=== PATIENT | female | born 1945 | race Caucasian/White ===

== ENCOUNTER → 2019-04-15 | Outpatient (CLI) | payer MEDICARE ==
--- NOTE | 2019-04-15 12:26 | Diagnostic Imaging Report ---
PROCEDURE: US abdomen complete. TECHNIQUE: Multiple real-time grayscale images were obtained over the abdomen in various projections. INDICATION: Abdominal bruit. COMPARISON: There are no prior studies available for comparison. FINDINGS: Spectral and color flow imaging of the aorta shows that there is extensive atherosclerotic plaque throughout the aorta. There is no evidence for aneurysm formation and there is no periaortic fluid collection that would suggest an acute abnormality. The inferior vena cava was generally unremarkable. The liver does not appear to be enlarged. There are areas of increased density paralleling the biliary tree. This may be secondary to periportal fibrosis. Spectral and color flow imaging of the hepatic veins and the portal veins shows that the veins are patent and that there is normal directional flow within the veins. There is no evidence for cholelithiasis or acute cholecystitis and the common bile duct is not dilated. There are two small nonmotile non shadowing echogenic densities within the gallbladder. These may represent polyps. The spleen is unremarkable. The pancreatic tail was obscured. The pancreatic head shows no sign of a mass. The kidneys were also partially obscured. There is a 2.9 x 4.6 cm hyperechoic area along the superior pole of the right kidney. I suspect that this is an angiomyolipoma, a benign neoplasm of the kidney. However unless previous studies are available for comparison, I would recommend that CT be performed to better evaluate this finding. The right renal pelvis also seems prominent, although there is no evidence for hydronephrosis. The left kidney where visualized is unremarkable. There is no abdominal mass or free fluid collection evident. IMPRESSION: 1. There is no acute abnormality of the abdomen. 2. There is atherosclerotic plaque throughout the aorta but there is no sign of an aneurysm. 3. There is no acute abnormality of the gallbladder but there do appear to be two small polyps within the gallbladder. 4. The echogenic density along the superior pole of the right kidney is suggestive of an angiomyolipoma. Recommendations as above. Dictated by: Dictated on workstation # [id number]
== END ==
LOC: RAD 08:23
PROVIDERS: ATTEND Registered Nurse
DX: I70.0 Atherosclerosis of aorta (principal); N28.89 Other specified disorders of kidney and ureter; K82.8 Other specified diseases of gallbladder; K76.89 Other specified diseases of liver
CPT/HCPCS: 76700

== ENCOUNTER 2019-04-25 05:41 | Outpatient (CLI) | payer MEDICARE ==
[~2019-04-25] VITALS: Ht 154.9 cm; Wt 39.9 kg
[2019-04-25] MEDS ORDERED: LISI-552 PO (10:11)
[2019-04-25] MEDS ORDERED: OMEP20CA12 PO (10:11)
== END 2019-04-25 10:17 | disposition home or self-care (01) ==
LOC: PREOP 05:41
PROVIDERS: ATTEND Surgery
DX: Z01.818 Encounter for other preprocedural examination (principal)

== ENCOUNTER 2019-04-28 10:55 | Day surgery (SDC) | payer MEDICARE ==
[~2019-04-28] VITALS: Ht 154.9 cm; Wt 39.9 kg
[~2019-04-28 10:55] MED LIST: LISI-552 PO; OMEP20CA12 PO
[2019-04-28] MEDS ORDERED: LACTATED RINGERS 1,000 ML IV ONE (10:57)
[2019-04-28] MEDS ORDERED: LACTATED RINGERS 1,000 ML IV STA (11:02)
[2019-04-28 11:10] VITALS: BP 158/98
[2019-04-28] MEDS ORDERED: HURRICAINE EXT TUBE (BENZOCAINE) XX PRN (11:15)
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
--- OUTSIDE RECORDS SUMMARY | 2019-04-28 11:31 | XMS REPORT ---
Author Author DONNY KEE [facility] Address [address] [place] [address] Care Team Providers Care Tile Trimmer Name Role Phone DONNY KEE Unavailable PROBLEMS Type Condition ICD9-CM Code YAU06-CI Code Onset Dates Condition Status SNOMED Code Problem Anemia due to other cause, not classified D64.89 Active 836502008 Problem Chronic seasonal allergic rhinitis due to pollen J30.1 Active 84097791 Problem Iron deficiency anemia, unspecified iron deficiency anemia type D50.9 Active 59105027 Problem Anemia, unspecified type D64.9 Active 193468318 Problem Mixed hyperlipidemia E78.2 Active 703840616 Problem Essential hypertension I10 Active 43517561 ALLERGIES No Information ENCOUNTERS Encounter Location Date Diagnosis [facility] [address] [address] Apr, [facility] [address] [place] [id number] [place] [id number] Apr, Hordeolum externum right lower eyelid H00.012 [facility] [address] [place] [id number] [place] [id number] Apr, Essential hypertension I10 ; Mixed hyperlipidemia E78.2 ; Iron deficiency anemia, unspecified iron deficiency anemia type D50.9 ; Screening declined by patient Z53.20 ; Breast screening declined Z53.20 ; Tobacco abuse Z72.0 ; Tobacco abuse counseling Z71.6 and Encounter for screening for lung cancer Z12.2 [facility] [address] [place] [id number] Apr, Essential hypertension I10 [place] [address] [facility] [id number], [place] [id number] March, Dental examination Z01.20 [facility] [address] [facility] [id number], [place] [phone] Feb, Dental examination Z01.20 [facility] [id number], [place] [id number] Jan, Essential hypertension I10 [facility] [address] [place] [id number] [place] [address] [id number] Dec, Essential hypertension I10 [address] [place] [address] [id number] Sep, Essential hypertension I10 and Iron deficiency anemia, unspecified iron deficiency anemia type D50.9 [place] [id number] [place] [address] [id number] Sep, Superficial foreign body, left great toe, initial encounter S90.452A and Essential hypertension I10 [address] [id number], [place] [id number] Sep, Dental caries K02.9 [place] [id number] [place] [address] [id number] Aug, Iron deficiency anemia, unspecified iron deficiency anemia type D50.9 [address] [place] [address] [id number] Aug, Essential hypertension I10 and Anemia due to other cause, not classified D64.[address] [id number], [place] [id number] Aug, Dental examination Z01.20 [place] [id number] [place] [address] [id number] Aug, Essential hypertension I10 ; Thyroid dysfunction E07.9 ; Mixed hyperlipidemia E78.2 ; Chronic seasonal allergic rhinitis due to pollen J30.1 ; Mammogram declined Z53.20 ; Tobacco abuse Z72.0 ; Tobacco abuse counseling Z71.6 and Acute diffuse otitis externa of both ears H60.[address] [id number], [place] [id number] Aug, Dental examination Z01.[address] [id number], [place] [id number] Feb, Dental examination Z01.[address] [facility] [address] [id number] [place] [id number] Jan, Dental examination Z01.[address] [facility] [address] [id number] [place] [id number] Nov, Dental examination Z01.[address] [facility] [address] [id number] [place] [phone] Oct, Encounter for other administrative examinations Z02.[address] [facility] [address] [id number] [place] [id number] Oct, Encounter for dental examination and cleaning without abnormal findings Z01.[address] [facility] [address] [id number] [place] [id number] March, Dental examination Z01.[address] [facility] [address] [id number] [place] [id number] Feb, Encounter for other administrative examinations Z02.[address] [facility] [address] [id number] [place] [phone] Oct, Encounter for dental examination and cleaning without abnormal findings Z01.[address] [facility] [address] [id number] [place] [id number] Aug, Dental examination Z01.20 and Dental caries, unspecified K02.[address] [facility] [address] [id number] [place] [id number] Jul, Dental examination V72.[address] [facility] [address] [id number] [place] [phone] Jun, Dental examination V72.[address] [facility] [address] [id number], [place] [id number] May, Dental examination V72.[address] [facility] [address] [id number] [place] [phone] May, Dental examination V72.[address] [facility] [address] [id number], [place] [id number] Apr, Dental examination V72.2 IMMUNIZATIONS No Known [...]
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
--- OUTSIDE RECORDS SUMMARY | 2019-04-28 11:31 | XMS REPORT ---
Author Author FLOWER CARDOSO Organization [employer] Address Unknown Phone Unavailable Care Team Providers Care Reserves Clerk Name Role Phone FLOWER CARDOSO CP Unavailable Allergies, Adverse Reactions, Alerts Substance Reaction Event Type Tetracycline HCl Info Not Available Drug Allergy Problems Problem Type Condition Code Onset Dates Condition Status Assessment Encounter for dental examination and cleaning without abnormal findings Z01.20 Active Problem Encounter for dental examination and cleaning without abnormal findings Z01.20 Active Medications No Known Medications Procedures Procedure Coding System Code Date VERTICAL BITEWINGS - 7 TO 8 FILMS CPT-4 D0277 Nov 09, 2015 Periodontal maint procedures CPT-4 D4910 Nov 09, 2015 PERIODIC ORAL EXAMINATION CPT-4 D0120 Nov 09, 2015 Vital Signs Date/Time: Nov 04, 2015 Blood Pressure Diastolic 74 mmHg Blood Pressure Systolic 139 mmHg Cardiac Monitoring Heart Rate 94 bpm Results No Known Results Summary Purpose [employer] Submission
--- OUTSIDE RECORDS SUMMARY | 2019-04-28 11:31 | XMS REPORT ---
Author Author FLOWER CARDOSO [facility] Address [address] [place] [address] Care Team Providers Care Seo Marketing Specialist Name Role Phone FLOWER CARDOSO Unavailable PROBLEMS Type Condition ICD9-CM Code QXD10-GY Code Onset Dates Condition Status SNOMED Code Problem Encounter for dental examination and cleaning without abnormal findings Z01.20 Active 480440441 ALLERGIES Substance Reaction Event Type Date Status Tetracycline HCl Unknown Drug Allergy Oct, Active SOCIAL HISTORY No smoking Hx information available PLAN OF CARE Activity Details Follow Up CAROL Reason: VITAL SIGNS Heart Rate 82 bpm 2016-10-31 Blood pressure systolic 152 mmHg 2016-10-31 Blood pressure diastolic 80 mmHg 2016-10-31 MEDICATIONS No Known Medications RESULTS No Results PROCEDURES Procedure Date Ordered Related Diagnosis Body Site VERTICAL BITEWINGS - 7 TO 8 FILMS Oct 31, 2016 PROPHYLAXIS - ADULT Oct 31, 2016 IMMUNIZATIONS No Known Immunizations
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
--- OUTSIDE RECORDS SUMMARY | 2019-04-28 11:31 | XMS REPORT ---
Author Author KAVEH OSBORN Organization [employer] Address Unknown Phone Unavailable Care Team Providers Care Oracle Solutions Architect Name Role Phone KAVEH OSBORN CP Unavailable Allergies, Adverse Reactions, Alerts Substance Reaction Event Type Tetracycline HCl Info Not Available Drug Allergy Problems Problem Type Condition Code Onset Dates Condition Status Assessment Dental examination Z01.20 Active Medications Medication Code System Code Instructions Start Date End Date Status Dosage Advil [facility] [address]-73 200 MG Orally every 6 hrs 1 tablet as needed Amoxicillin [facility] [address]-99 500 MG Orally Three times a day Aug 24, 2015 Sep 03, 2015 1 capsule [place] [facility] [address]-50 5-325 MG Orally every 6 hrs Aug 24, 2015 1 tablet as needed Procedures Procedure Coding System Code Date SURG REMOVAL ERUPTED TOOTH CPT-4 D7210 Aug 24, 2015 Vital Signs Date/Time: Aug 24, 2015 Blood Pressure Diastolic 92 155 mmHg Blood Pressure Systolic 177 mmHg Cardiac Monitoring Heart Rate 82 bpm Results No Known Results Summary Purpose [employer] Submission
--- OUTSIDE RECORDS SUMMARY | 2019-04-28 11:31 | XMS REPORT ---
Author Author RASHEL PURCELL [facility] Address [address] [place] [address] Care Team Providers Care Model Dresser Name Role Phone RASHEL PURCELL Unavailable PROBLEMS Type Condition ICD9-CM Code RST96-KB Code Onset Dates Condition Status SNOMED Code Problem Encounter for dental examination and cleaning without abnormal findings Z01.20 Active 803645081 ALLERGIES Substance Reaction Event Type Date Status Tetracycline HCl Unknown Drug Allergy Nov, Active SOCIAL HISTORY No smoking Hx information available PLAN OF CARE Activity Details Follow Up prn Reason:filling VITAL SIGNS MEDICATIONS No Known Medications RESULTS No Results PROCEDURES Procedure Date Ordered Related Diagnosis Body Site COMP ORAL EVALUATION - NEW/EST PT Dec 04, 2016 IMMUNIZATIONS No Known Immunizations
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
[2019-04-28] MEDS ORDERED: MIDAZOLAM 2 MG/2 ML (VERSED) VIAL ONE (11:32)
[2019-04-28] MEDS ORDERED: PROPOFOL INJECTION 50 ML IV ONE (11:32)
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
--- OUTSIDE RECORDS SUMMARY | 2019-04-28 11:32 | XMS REPORT ---
Author Author KAVEH OSBORN Organization [employer] Address Unknown Phone Unavailable Care Team Providers Care Prorate Clerk Name Role Phone KAVEH OSBORN CP Unavailable Allergies No Known Allergies Problems Problem Type Condition ICD-9 Code Onset Dates Condition Status Assessment Dental examination V72.2 Active Medications No Known Medications Procedures Procedure Coding System Code Date INTRAORL-PERIAPICAL 1 FILM 34370 CPT-4 D0220 Jul 26, 2015 BITEWING - SINGLE FILM CPT-4 D0270 Jul 26, 2015 LTD ORAL EVALUATION - PROBLEM FOCUS CPT-4 D0140 Jul 26, 2015 OCCLUSAL ADJUSTMENT - LIMITED CPT-4 D9951 Jul 26, 2015 Results No Known Results Summary Purpose [employer] Submission
--- OUTSIDE RECORDS SUMMARY | 2019-04-28 11:32 | XMS REPORT ---
Author MELL Fields [facility] [employer] Address Unknown Phone Unavailable Care Team Providers Care Cook Supervisor Name Role Phone MELL RUBALCAVA CP Unavailable Allergies No Known Allergies Problems Problem Type Condition ICD-9 Code Onset Dates Condition Status Assessment Dental examination V72.2 Active Medications No Known Medications Procedures Procedure Coding System Code Date Periodontal maint procedures CPT-4 D4910 Jun 29, 2015 Results No Known Results Summary Purpose [employer] Submission
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
--- OUTSIDE RECORDS SUMMARY | 2019-04-28 11:32 | XMS REPORT | Continuity of Care Document ---
Author Organization Unknown Address Unknown Allergies There is no data. Medications There is no data. Problems There is no data. Procedures There is no data. Results Test Result Range CBC MORPHOLOGY - 08/28/17 10:38 CBC MORPHOLOGY NORMAL ANEMIA PANEL - 09/05/17 15:03 IRON, TOTAL 25 mcg/dL 45-160 FERRITIN 7 ng/mL 20-288 IRON BINDING CAPACITY 468 mcg/dL (calc) 250-450 % SATURATION 5 % (calc) 11-50 DIFFERENTIAL, MANUAL - 04/22/18 11:07 ABSOLUTE NEUTROPHILS 5175 cells/uL 7224-6752 ABSOLUTE MONOCYTES 450 cells/uL 200-950 ABSOLUTE EOSINOPHILS 75 cells/uL 15-500 ABSOLUTE BASOPHILS 150 cells/uL 0-200 NEUTROPHILS 69 % NRG LYMPHOCYTES 22 % NRG MONOCYTES 6 % NRG EOSINOPHILS 1 % NRG BASOPHILS 2 % NRG ABSOLUTE LYMPHOCYTES 1650 cells/uL 850-3900 PLATELET ESTIMATION ADEQUATE ADEQUATE CBC MORPHOLOGY NORMAL MAGNESIUM SERUM - 04/11/19 10:56 MAGNESIUM 2.2 mg/dL 1.5-2.5 CBC - 04/11/19 10:56 WHITE BLOOD CELL COUNT 7.5 Thousand/uL 3.8-10.8 RED BLOOD CELL COUNT 4.60 Million/uL 3.80-5.10 HEMOGLOBIN 11.8 g/dL 11.7-15.5 HEMATOCRIT 37.4 % 35.0-45.0 MCV 81.3 fL 80.0-100.0 MCH 25.7 pg 27.0-33.0 MCHC 31.6 g/dL 32.0-36.0 RDW 13.0 % 11.0-15.0 PLATELET COUNT 499 Thousand/uL 140-400 MPV 11.3 fL 7.5-12.5 ABSOLUTE NEUTROPHILS 6135 cells/uL 0372-8282 ABSOLUTE LYMPHOCYTES 945 cells/uL 850-3900 ABSOLUTE MONOCYTES 345 cells/uL 200-950 ABSOLUTE EOSINOPHILS 23 cells/uL 15-500 ABSOLUTE BASOPHILS 53 cells/uL 0-200 NEUTROPHILS 81.8 % NRG LYMPHOCYTES 12.6 % NRG MONOCYTES 4.6 % NRG EOSINOPHILS 0.3 % NRG BASOPHILS 0.7 % NRG A1C - 04/11/19 10:56 HEMOGLOBIN A1c 5.9 % of total Hgb <5.7 TEST AUTHORIZATION - 04/11/19 10:56 TEST NAME: HEMOGLOBIN A1c NRG TEST CODE: [id number] NRG CLIENT CONTACT: DEMOND NICHOLS NRG REPORT ALWAYS MESSAGE SIGNATURE NRG COMMENT NRG Encounters ACCT No. Visit Date/Time Discharge Status Pt. Type Provider Facility Loc./Unit Complaint [id number] 04/14/2019 08:20:00 04/14/2019 23:59:59 [facility] [place] [id number] 04/11/2019 09:40:00 Document Registration [id number] 04/22/2018 10:20:00 Document Registration [id number] 09/05/2017 14:20:00 Document Registration [id number] 08/28/2017 09:20:00 Document Registration
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
--- NOTE | 2019-04-28 11:40 | Progress Note-Pre Operative ---
Pre-Operative Progress Note H&P Reviewed The H&P was reviewed, patient examined and no changes noted. Time Seen by Provider: 11:37 Date H&P Reviewed: Apr 28, 2019 Time H&P Reviewed: 11:38 Pre-Operative Diagnosis: Chronic Gastritis, Hemoccult +, Weight loss JOJO RHODES DO Apr 28, 2019 11:40
--- NOTE | 2019-04-28 12:10 | Progress Note-Post Operative ---
Post-Operative Progess Note Surgeon (s)/Systems Coordinator (s) Surgeon JOJO RHODES DO Systems Coordinator: none Pre-Operative Diagnosis Chronic Gastritis, Hemoccult +, Weight loss Post-Operative Diagnosis same with poor prep Procedure & Operative Findings Date of Procedure 04/28/19 Procedure Performed/Findings EGD with bx Colonoscopy cut short Anesthesia Type IV sedation by AIRLINE MANAGERIAL SUPERVISOR Estimated Blood Loss Estimated blood loss (mL): scant Specimens/Packing Specimens Removed antral bx GE jxn bx JOJO RHODES DO Apr 28, 2019 12:10
--- NOTE | 2019-04-28 12:12 | Endoscopy Discharge Instruct ---
Endo Procedure/Findings Findings 1.: Gastritis 2.: Hiatal Hernia Discharge Instructions - Activity: You might feel a little sleepy until tomorrow. This is due to the medicine you received to relax you. Until tomorrow, you should: NOT drive a car, operate machinery or power tools. NOT drink any alcoholic beverages. NOT make any important decisions or sign importortant papers. Do not return to work until tomorrow, unless otherwise instructed. Resume previous activities tomorrow. Diet: Start by taking liquids. If you tolerate liquids, advance to solid food. make appointment for one week Notify Physician - If you experience excessive bleeding, unusual abdominal pain, fever, or chest pain, contact your doctor immediately. Follow-Up: - I have received and understand the above instructions and will call my doctor if I have any further questions. Patient Signature Date Nurse Signature Other (Relationship) JOJO RHODES DO Apr 28, 2019 12:12
[2019-04-28 12:40] VITALS: BP 143/81
[2019-04-28 13:05] VITALS: BP 161/87
[2019-04-28 13:06] VITALS: BP 161/87
--- NOTE | 2019-04-28 14:39 | Anesthesia-General Post-Op ---
MAC Patient Condition Mental Status/LOC: Same as Preop Cardiovascular: Satisfactory Nausea/Vomiting: Absent Respiratory: Satisfactory Pain: Controlled Complications: Absent Post Op Complications Complications None Follow Up Care/Instructions Patient Instructions None needed. Anesthesiology Discharge Order Discharge Order Patient is doing well, no complaints, stable vital signs, no apparent adverse anesthesia problems. No complications reported per nursing. CHRISTIN MOTLEY CRNA Apr 28, 2019 14:39
--- NOTE | 2019-04-28 20:51 | OPERATIVE REPORT ---
DATE OF SERVICE: PREOPERATIVE DIAGNOSES: 1. Chronic gastritis. 2. Hemoccult positive. 3. Weight loss. POSTOPERATIVE DIAGNOSES: 1. Chronic gastritis. 2. Hemoccult positive. 3. Weight loss. 4. Poor prep. PROCEDURES: 1. EGD with biopsy. 2. Colonoscopy cut short. SURGEON: Isaias Langley DO DICTIONARY EDITOR: None. ANESTHESIA: IV sedation by DIVISION CHAIR. SPECIMEN: One antral biopsy and one GE junction biopsy. BLOOD LOSS: Scant. FLUIDS: Per anesthesia. POSTOPERATIVE CONDITION: Stable. INDICATION FOR PROCEDURE: The patient is a 74-year-old female who has been having some chronic gastritis, weight loss, has not been able to eat and had a hemoccult positive, needed a workup. FINDINGS: The patient had some mild gastritis and hiatal hernia as well as retained food in the stomach and she had some unfortunately very poor prep, could not even get out of the rectum because of fecal material in the rectum. PROCEDURE NOTE: After informed consent was obtained, the patient was brought to the endoscopy suite, placed in the bed in left lateral decubitus position. She was administered IV sedation by the DIVISION CHAIR who then monitored her vitals the entire time, heart rate, blood pressure and pulse ox. The scope was inserted down the mouth through the esophagus into the stomach. Upon entering the stomach, noted retained vegetable matter, pushed through to the duodenum, took a picture of the duodenum. First and second portion of duodenum looked fine, did a biopsy of the antrum. Retroflexed the scope, saw hiatal hernia, took a picture of this and then pulled the scope back up into the GE junction, did a biopsy here, pulled the scope up the esophagus and out of the mouth and then switched cameras and switched gloves, went down below to start the colonoscopy. Unfortunately, immediately upon entering the rectum, noted large amount of fecal material, all liquid, but completely staining all the jimenez, covering all the jimenez, tried to push up into the sigmoid, again in the sigmoid, retained fecal material at this point, then elected to just stop the colonoscopy, pulled the scope out. The patient tolerated procedure. She was recovered in endoscopy suite. Job ID: [id number] DocumentID: [id number] Dictated Date: 04/28/2019 14:49:58 Cable Tool Operator Date: 04/28/2019 20:50:51 Dictated By: ISAIAS LANGLEY DO [facility]
== END 2019-04-28 13:10 | disposition home or self-care (01) ==
LOC: ENDO 10:55
PROVIDERS: ATTEND Surgery
DX: K29.50 Unspecified chronic gastritis without bleeding (principal); K21.0 Gastro-esophageal reflux disease with esophagitis; K22.70 Barrett's esophagus without dysplasia; R63.4 Abnormal weight loss; R19.5 Other fecal abnormalities; K44.9 Diaphragmatic hernia without obstruction or gangrene; Z80.0 Family history of malignant neoplasm of digestive organs; Z80.3 Family history of malignant neoplasm of breast; I10 Essential (primary) hypertension; F17.290 Nicotine dependence, other tobacco product, uncomplicated; Z79.899 Other long term (current) drug therapy

== ENCOUNTER 2019-05-13 13:00 | Outpatient (CLI) | payer MEDICARE ==
[~2019-05-13] VITALS: Ht 154.9 cm; Wt 39.9 kg
[2019-05-13] MEDS ORDERED: ONDA4TAB11 PO (13:02)
== END 2019-05-13 13:29 | disposition home or self-care (01) ==
LOC: PREOP 13:00
PROVIDERS: ATTEND Surgery
DX: Z01.818 Encounter for other preprocedural examination (principal)

== ENCOUNTER 2019-05-19 07:18 | Day surgery (SDC) | payer MEDICARE ==
[~2019-05-19] VITALS: Ht 154.9 cm; Wt 39.9 kg
[~2019-05-19 07:18] MED LIST changes: +ONDA4TAB11 PO
[2019-05-19] MEDS ORDERED: LACTATED RINGERS 1,000 ML IV ONE (07:21)
[2019-05-19] MEDS ORDERED: LACTATED RINGERS 1,000 ML IV STA (07:30)
--- OUTSIDE RECORDS SUMMARY | 2019-05-19 07:44 | XMS REPORT | Continuity of Care Document ---
[...] - 04/22/18 11:07 ABSOLUTE NEUTROPHILS 5175 cells/uL 2078-5804 ABSOLUTE MONOCYTES 450 cells/uL 200-950 ABSOLUTE EOSINOPHILS [...] 11.3 fL 7.5-12.5 ABSOLUTE NEUTROPHILS 6135 cells/uL 6649-4658 ABSOLUTE LYMPHOCYTES 945 cells/uL 850-3900 ABSOLUTE MONOCYTES [...] Status Pt. Type Provider Facility Loc./Unit Complaint [id number] 05/12/2019 16:40:00 05/12/2019 23:59:59 [facility] [place] [id number] 04/11/2019 09:40:00 Document Registration [id number] 04/22/2018 10:20:00 Document Registration [id number] 09/05/2017 14:20:00 Document Registration [id number] 08/28/2017 09:20:00 Document Registration
[2019-05-19 07:48] VITALS: BP 168/88
[2019-05-19] MEDS ORDERED: proPOfol 200 MG/20 ML (DIPRIVAN) VIAL IV ONE (07:51)
[2019-05-19] MEDS ORDERED: LIDOCAINE PF 2% 5 ML (XYLOCAINE) VIAL ONE (07:52)
[2019-05-19] MEDS ORDERED: MIDAZOLAM 2 MG/2 ML (VERSED) VIAL ONE (07:52)
--- NOTE | 2019-05-19 08:18 | Progress Note-Pre Operative ---
Pre-Operative Progress Note H&P Reviewed The H&P was reviewed, patient examined and no changes noted. Time Seen by Provider: 08:12 Date H&P Reviewed: May 19, 2019 Time H&P Reviewed: 08:11 Pre-Operative Diagnosis: Chronic Gastritis, Hemoccult + stool JOJO RHODES DO May 19, 2019 08:18
--- NOTE | 2019-05-19 08:56 | Progress Note-Post Operative ---
Post-Operative Progess Note Surgeon (s)/Waste Machine Offbearer (s) Surgeon JOJO RHODES DO Waste Machine Offbearer: none Pre-Operative Diagnosis Chronic Gastritis, Hemoccult + stool Post-Operative Diagnosis Colon polyps Internal hemorrhoids Procedure & Operative Findings Date of Procedure 05/19/19 Procedure Performed/Findings Colon with snare Anesthesia Type IV sedation by GAS STATION SERVICE ATTENDANT Estimated Blood Loss Estimated blood loss (mL): scant Specimens/Packing Specimens Removed Polyp x 2 from Descending colon JOJO RHODES DO May 19, 2019 08:56
--- NOTE | 2019-05-19 08:57 | Endoscopy Discharge Instruct ---
Endo Procedure/Findings Findings 1.: Polyp 2.: Internal Hemorrhoids Discharge Instructions - Activity: You might feel a little sleepy until tomorrow. This is due to the medicine you received to relax you. Until tomorrow, you should: NOT drive a car, operate machinery or power tools. NOT drink any alcoholic beverages. NOT make any important decisions or sign importortant papers. Do not return to work until tomorrow, unless otherwise instructed. Resume previous activities tomorrow. Diet: Start by taking liquids. If you tolerate liquids, advance to solid food. Make appointment for one week. Notify Physician - If you experience excessive bleeding, unusual abdominal pain, fever, or chest pain, contact your doctor immediately. Follow-Up: - I have received and understand the above instructions and will call my doctor if I have any further questions. Patient Signature Date Nurse Signature Other (Relationship) JOJO RHODES DO May 19, 2019 08:57
[2019-05-19 09:00] VITALS: BP 112/65
[2019-05-19 09:35] VITALS: BP 112/71
[2019-05-19 10:47] VITALS: BP 112/71
--- NOTE | 2019-05-19 14:06 | OPERATIVE REPORT ---
DATE OF SERVICE: 05/19/2019 PREOPERATIVE DIAGNOSIS: History of hemoccult positive stool. POSTOPERATIVE DIAGNOSES: 1. Colon polyps. 2. Internal hemorrhoids. 3. Poor prep. PROCEDURE PERFORMED: Colonoscopy with snare polypectomy. SURGEON: Isaias Langley DO. PUMPER HAND: None. ANESTHESIA: IV sedation by the AUTOMATIC I THREADING MACHINE FEEDER. SPECIMEN: Two polyps in the descending colon. BLOOD LOSS: Scant. FLUIDS: Per Anesthesia. POSTOPERATIVE CONDITION: Stable. INDICATION FOR PROCEDURE: The patient is a 74-year-old female who has been having weight loss, trouble eating and had a hemoccult positive stool, needed a workup. FINDINGS: The patient unfortunately again had a poor prep, was able to find 2 polyps, was able to get up to the cecum at this time. PROCEDURE NOTE: After informed consent was obtained, the patient was brought to the endoscopy suite and placed in the left lateral decubitus position. She was administered IV sedation by the AUTOMATIC I THREADING MACHINE FEEDER who then monitored his vitals the entire time, heart rate, blood pressure and pulse ox. The scope was inserted, pushed all the way about [address] and noted a little bit of fecal material in the rectum, cleared through the colon, but then again in the ascending colon, there was fecal material on the jimenez, able to get all the way to the cecum, but it was covered completely in fecal material, unable to clear this, did not see any large masses protruding through here, looked like just the jimenez covered. At this point then slowly withdrew the scope insufflating to look circumferentially at the jimenez looking at the cecum up the ascending colon to the hepatic flexure, down the transverse colon, the splenic flexure, then into the descending colon and the top of the descending colon, saw one flat polyp and then one raised polyp, did a snare polypectomy and able to remove both of these and then continued down the descending colon into the sigmoid and finally into the rectum, retroflexed the rectal vault. She had some grade 2 internal hemorrhoids. No other obvious pathology. Scope was then removed. The patient tolerated the procedure and recovered in the endoscopy suite. Job ID: [id number] DocumentID: [id number] Dictated Date: 05/19/2019 09:44:49 Well Site Drilling Engineer Date: 05/19/2019 14:06:18 Dictated By: ISAIAS LANGLEY DO
== END 2019-05-19 09:40 | disposition home or self-care (01) ==
LOC: ENDO 07:18
PROVIDERS: ATTEND Surgery
DX: D12.4 Benign neoplasm of descending colon (principal); K64.8 Other hemorrhoids; K22.70 Barrett's esophagus without dysplasia; K29.50 Unspecified chronic gastritis without bleeding; K21.9 Gastro-esophageal reflux disease without esophagitis; I10 Essential (primary) hypertension; J44.9 Chronic obstructive pulmonary disease, unspecified; F17.210 Nicotine dependence, cigarettes, uncomplicated; Z80.3 Family history of malignant neoplasm of breast; Z80.0 Family history of malignant neoplasm of digestive organs; Z79.899 Other long term (current) drug therapy; Z88.1 Allergy status to other antibiotic agents

== ENCOUNTER → 2019-06-17 | Outpatient (CLI) | payer MEDICARE, OTHER ==
[~2019-06-17] MED LIST changes: -OMEP20CA12 PO; +OMEP20CA13 PO
[2019-06-17 10:18] LABS: BASOPHILS % (AUTO) 0 % (0-10); EOSINOPHILS % (AUTO) 0 % (0-10); HEMATOCRIT 31 % (35-52); HEMOGLOBIN 9.7 G/DL (11.5-16.0); LYMPHOCYTES # (AUTO) 0.6 X 10^3 (1.0-4.0); LYMPHOCYTES % (AUTO) 4 % (12-44); MEAN CORPUSCULAR HEMOGLOBIN 25 PG (25-34); MEAN CORPUSCULAR HGB CONC 31 G/DL (32-36); MEAN CORPUSCULAR VOLUME 79 FL (80-99); MEAN PLATELET VOLUME 10.9 FL (7.4-10.4); MONOCYTES # (AUTO) 0.8 X 10^3 (0.0-1.0); MONOCYTES % (AUTO) 6 % (0-12); NEUTROPHILS # (AUTO) 12.6 X 10^3 (1.8-7.8); NEUTROPHILS % (AUTO) 90 % (42-75); PLATELET COUNT 589 10^3/uL (130-400); RED CELL DISTRIBUTION WIDTH 14.9 % (10.0-14.5)
[2019-06-17 10:42] LABS: ALANINE AMINOTRANSFERASE 24 U/L (0-55); ALBUMIN 3.6 GM/DL (3.2-4.5); ALKALINE PHOSPHATASE 140 U/L (40-136); BILIRUBIN,TOTAL 0.5 MG/DL (0.1-1.0); BUN/CREATININE RATIO 38; CALCIUM 10.3 MG/DL (8.5-10.1); CARBON DIOXIDE 21 MMOL/L (21-32); CHLORIDE 102 MMOL/L (98-107); CREATININE SERUM 0.71 MG/DL (0.60-1.30); GFR ESTIMATED > 60; GLUCOSE 92 MG/DL (70-105); POTASSIUM 3.5 MMOL/L (3.6-5.0); SODIUM 136 MMOL/L (135-145); TOTAL PROTEIN 7.5 GM/DL (6.4-8.2)
[2019-06-17 11:05] LABS: BAND NEUTROPHILS 0 %; BASOPHILS % (MANUAL) 0 %; EOSINOPHILS % (MANUAL) 0 %; LYMPHOCYTES % (MANUAL) 7 %; MONOCYTES % (MANUAL) 1 %; NEUTROPHILS % (MANUAL) 92 %; RBC MORPH NORMAL
== END ==
LOC: LAB 09:55
PROVIDERS: ATTEND Internal Medicine Critical Care Medicine
DX: J30.9 Allergic rhinitis, unspecified (principal); Z72.0 Tobacco use
CPT/HCPCS: 36415; 80053; 85007; 85027

== ENCOUNTER → 2019-06-23 | Outpatient (CLI) | payer MEDICARE, OTHER ==
[~2019-06-23] MED LIST changes: +FLUT16SP22 NS; +METO-310 PO; +PANT40TA2 PO
--- NOTE | 2019-06-23 11:50 | Diagnostic Imaging Report ---
PROCEDURE: CT abdomen and pelvis without contrast. TECHNIQUE: Multiple contiguous axial images were obtained through the abdomen and pelvis without the use of intravenous contrast. Auto Exposure Controls were utilized during the CT exam to meet ALARA standards for radiation dose reduction. INDICATION: Weight loss last 2-3 months. COMPARISON: No prior studies are available for comparison. FINDINGS: The study is limited without intravenous contrast. There is a moderate left sided pleural effusion. There appears to be consolidation versus mass in the left lower lobe. This will be further evaluated with CT chest. Right lung base is clear. No discrete liver mass is identified. Gallbladder is unremarkable. No biliary duct dilatation seen. Unopacified pancreas and spleen are unremarkable. No adrenal mass is detected. Left kidney is unremarkable. Right kidney contains an 18 mm low-density lesion in the upper pole. This may contain fatty elements and represent an angiomyolipoma. No hydronephrosis is seen. Aorta and iliac vessels are calcified but nonaneurysmal. Small and large bowel loops are nondilated. Moderate stool in the colon is seen. There is no ascites. There is no free air. IMPRESSION: 1. Study is limited by absence of intravenous and oral contrast. No abdominal or pelvic mass is seen with the exception of a possible fat-containing lesion in the right kidney, suggestive of an angiomyolipoma. 2. Moderate left pleural effusion with left basilar consolidation versus mass. This will be further assessed on CT chest. Dictated by: Dictated on workstation # [id number]
== END ==
LOC: RAD 10:57
PROVIDERS: ATTEND Internal Medicine Gastroenterology
DX: J90 Pleural effusion, not elsewhere classified (principal); R63.4 Abnormal weight loss
CPT/HCPCS: 74176

== ENCOUNTER → 2019-06-23 | Outpatient (CLI) | payer MEDICARE, OTHER ==
[~2019-06-23] MED LIST changes: +HOLD METFORMIN - RECEIVED CONTRAST 20 ML VIAL IV SCH; +IOHEXOL 350 MG/ML 100 ML (OMNIPAQUE 350) VIAL IV ONE; +NS 100 ML (IVPB) BAG IV ONE
[2019-06-23 11:41] LABS: BUN/CREATININE RATIO 32; CREATININE SERUM 0.66 MG/DL (0.60-1.30); GFR ESTIMATED > 60
--- NOTE | 2019-06-23 11:54 | Diagnostic Imaging Report ---
PROCEDURE: CT chest with contrast only. TECHNIQUE: Multiple contiguous axial images were obtained through the chest after administration of intravenous contrast. Auto Exposure Controls were utilized during the CT exam to meet ALARA standards for radiation dose reduction. INDICATION: Shortness of air with exertion. COMPARISON: No prior studies are available for comparison. FINDINGS: The left lobe of the thyroid appears to be enlarged and contain multiple low densities. There is a very large left-sided pleural effusion. There is complete opacification of the left hemithorax. There is significant atelectasis and collapse of the left upper and left lower lobe. An underlying central lesion cannot be entirely excluded. There appears to be occlusion of the left main stem bronchus. There is soft tissue fullness in the subcarinal region and adenopathy is suspected. No other mediastinal mass is seen. Right hilum is unremarkable. Tiny density in the medial right upper lobe is noted measuring 11 mm. Tiny subpleural nodule in the lateral portion of the right upper lobe are noted 2-3 mm in size. Otherwise the right lung is clear. No pericardial fluid is identified. Bony structures are nonacute. IMPRESSION: 1. Large left pleural effusion with complete collapse of the left upper and left lower lobe. There is occlusion of the left main stem bronchus. Soft tissue masslike density in the subcarinal region is noted. Bronchoscopy would be recommended. Right lung is grossly unremarkable apart from a small slight irregular density in the medial right upper lobe, indeterminate and continued followup would be recommended. Dictated by: Dictated on workstation # [id number]
== END ==
LOC: RAD 10:52
PROVIDERS: ATTEND Nurse Practitioner Family
DX: J30.9 Allergic rhinitis, unspecified (principal); J90 Pleural effusion, not elsewhere classified; J98.19 Other pulmonary collapse; J98.09 Other diseases of bronchus, not elsewhere classified; J98.4 Other disorders of lung; Z72.0 Tobacco use
CPT/HCPCS: 36415; 71260; 82565; 84520

== ENCOUNTER 2019-06-24 14:40 | Inpatient (IN) | payer MEDICARE, OTHER ==
[~2019-06-24] VITALS: Ht 154.9 cm; Wt 41.4 kg
[2019-06-24] VITALS (9 sets, daily range): BP systolic 92–143; BP diastolic 51–80
[~2019-06-24 14:40] MED LIST changes: -FLUT16SP22 NS; -HOLD METFORMIN - RECEIVED CONTRAST 20 ML VIAL IV SCH; -IOHEXOL 350 MG/ML 100 ML (OMNIPAQUE 350) VIAL IV ONE; -METO-310 PO; -NS 100 ML (IVPB) BAG IV ONE; -PANT40TA2 PO
--- NOTE | 2019-06-24 14:45 | NUR ---
PT DIRECT ADMIT FROM DR HARRIS OFFICE ADMITTED UNDER DR STEVENS FOR LEFT PLEURAL EFFUSION, DEHYDRATION, N/V/D. PT RESPIRATIONS LABORED AND IN THE 40'S. PT REPORTS SOME CHEST PAIN IN LEFT CHEST WALL. PT ORIENTED TO ROOM. CALL LIGHT WITHIN REACH. PT PREPARED FOR THORACENTESIS WITH DR HARRIS [id number] DR HARRIS WAS NOTIFIED OF PT ARRIVAL 1515 TELE MONITOR APPLIED
[2019-06-24] MEDS ORDERED: CATHETER FLUSH 10 ML SYR IV PRN (15:15)
[2019-06-24] MEDS ORDERED: RT-ALBUTEROL/IPRATROPIUM 3 ML (DUONEB) VIAL IH PRN (15:15)
[2019-06-24] MEDS ORDERED: LISI-552 PO (15:43)
[2019-06-24] MEDS ORDERED: FLUT16SP22 NS (15:43)
[2019-06-24] MEDS ORDERED: METO-310 PO (15:43)
[2019-06-24] MEDS ORDERED: PANT40TA2 PO (15:43)
[2019-06-24] MEDS: NS IV 1000 ML 1,000 ML IV SCH (15:45)
[2019-06-24] MEDS: methylPREDNISolone 40 MG/ML (Solu-MEDROL) VIAL IV SCH ×2 (15:45→23:03)
[2019-06-24 15:53] LABS: BASOPHILS % (AUTO) 0 % (0-10); EOSINOPHILS % (AUTO) 0 % (0-10); HEMATOCRIT 27 % (35-52); HEMOGLOBIN 8.4 G/DL (11.5-16.0); LYMPHOCYTES # (AUTO) 0.6 X 10^3 (1.0-4.0); LYMPHOCYTES % (AUTO) 4 % (12-44); MEAN CORPUSCULAR HEMOGLOBIN 25 PG (25-34); MEAN CORPUSCULAR HGB CONC 32 G/DL (32-36); MEAN CORPUSCULAR VOLUME 78 FL (80-99); MEAN PLATELET VOLUME 9.8 FL (7.4-10.4); MONOCYTES # (AUTO) 1.1 X 10^3 (0.0-1.0); MONOCYTES % (AUTO) 7 % (0-12); NEUTROPHILS # (AUTO) 12.8 X 10^3 (1.8-7.8); NEUTROPHILS % (AUTO) 89 % (42-75); PLATELET COUNT 897 10^3/uL (130-400); RED CELL DISTRIBUTION WIDTH 14.5 % (10.0-14.5); WHITE BLOOD COUNT 14.4 10^3/uL (4.3-11.0)
[2019-06-24] MEDS ORDERED: PIPERACILLIN/TAZO 4.5 GM/NS 100 ML IV NR ×2 (16:00)
[2019-06-24 16:13] LABS: ALANINE AMINOTRANSFERASE 15 U/L (0-55); ALBUMIN 2.8 GM/DL (3.2-4.5); ALKALINE PHOSPHATASE 132 U/L (40-136); AMYLASE 16 U/L (25-125); BILIRUBIN,TOTAL 0.4 MG/DL (0.1-1.0); BUN/CREATININE RATIO 32; CALCIUM 9.3 MG/DL (8.5-10.1); CARBON DIOXIDE 27 MMOL/L (21-32); CHLORIDE 101 MMOL/L (98-107); CREATININE SERUM 0.63 MG/DL (0.60-1.30); GFR ESTIMATED > 60; GLUCOSE 103 MG/DL (70-105); LIPASE 4 U/L (8-78); PHOSPHORUS 3.2 MG/DL (2.3-4.7); POTASSIUM 3.9 MMOL/L (3.6-5.0); SODIUM 137 MMOL/L (135-145)
[2019-06-24 16:24] LABS: BAND NEUTROPHILS 3 %; EOSINOPHILS % (MANUAL) 1 %; HYPERSEGMENTED NEUT SLIGHT; LYMPHOCYTES % (MANUAL) 4 %; MONOCYTES % (MANUAL) 4 %; NEUTROPHILS % (MANUAL) 88 %
--- NOTE | 2019-06-24 16:26 | NUR ---
UNABLE TO GET IT TO DISCUSS MEDICATIONS WITH THE PATIENT PRIOR TO END OF SHIFT. I UPDATED THE MED REC WITH WHAT HAS BEEN FILLED RECENTLY AT [facility]. I WILL CHECK BACK TOMORROW TO VERIFY WITH THE PATIENT. SUNITHA FILLED: 06-12-19 REGLAN 10MG ACHS #120 06-03-19 PROTONIX 40MG DAILY 05-30-19 LISINOPRIL 20MG DAILY #30 05-30-19 FLONASE DAILY APRIL TRACE (LEFT ON MED REC PRN) LISA MARTIN (DID NOT INCLUDE ON MED REC)
[2019-06-24 16:27] LABS: ROULEAUX MARKED; TOXIC GRANULATION/VACUOLAZATIO 1+
--- NOTE | 2019-06-24 16:35 | NUR ---
THORACENTESIS COMPLETED BY DR HARRIS AT BEDSIDE. 1,000ML OF SEROSANGUINEOUS FLUID REMOVED AND SENT TO LAB PER ORDERS. PT RESTING IN BED WITH NO COMPLAINTS. REPORTS CHEST PAIN IS GETTING BETTER.
--- NOTE | 2019-06-24 16:40 | Pulmonary Procedures ---
Pulmonary Procedures Date of Procedure Date of Service: Jun 24, 2019 Procedure: Left US guided complex thoracentesis Preop DX: pleural effusion post op DX: 1000cc of serosanguineous fluid obtained Complications: None After informed consent obtained US was used to localize pleural fluid. Pt has L>R pleural effusions. Skin was anesthetized at approximately the 10th ICS posterior axillary line. Thoracentesis needle was advanced through the 10th ICS posterior axillary line. Needle was removed and catheter left in place. 1000cc of serosanguineous fluid obtained using vacuum bottles. Catheter was then removed. Pt tolerated procedure well. No complications noted. ZACK HARRIS DO Jun 24, 2019 16:40
--- NOTE | 2019-06-24 16:41 | Diagnostic Imaging Report ---
INDICATION: Left thoracentesis. TIME OF EXAM: 04:18 p.m. FINDINGS: There has been significant reduction in left-sided pleural effusion, status post thoracentesis. There is now aeration of the upper portion of the left lung. There continues to be some pleural fluid versus atelectasis in the left mid and lower lung field. No pneumothorax is seen. Right lung remains well aerated. IMPRESSION: Reduction in left pleural effusion and overall improved aeration to the upper portion of the left lung, status post thoracentesis. No significant pneumothorax is seen. Dictated by: Dictated on workstation # [id number]
[2019-06-24 16:55] LABS: BODY FLUID COLOR AMBER; BODY FLUID SOURCE PLEURAL
[2019-06-24 16:56] LABS: BODY FLUID APPEARENCE SLT CLDY
[2019-06-24 17:18] LABS: GLUCOSE,BODY FLUID 102 MG/DL; LDH,BODY FLUID 349 U/L; TOTAL PROTEIN,BODY FLUID 3.6 G/DL
--- NOTE | 2019-06-24 17:28 | NUR ---
ICU TELE PIPE PRODUCTION WORKER NOTIFIED THIS NURSE OF PT IN AFIB WITH RVR ON TELE MONITOR. EKG OBTAINED RATE 161 AFIB [address] DR. STEVENS NOTIFIED OF PT CONDITION AND RECENT VS. ORDER RECEIVED FOR 1LNS BOLUS. WILL TRANSFER TO ICU IF BED IS AVAILABLE.
--- NOTE | 2019-06-24 17:43 | NUR ---
PT TRANSFERRED TO ICU PER ORDERS. ALL BELONGINGS SENT WITH PT.
--- NOTE | 2019-06-24 17:44 | NUR ---
Pt arrived in hospital bed from 4th floor. Pt visibly distress with grunting and tachypnea. BSM applied. HR on tele monitor 160-206 at highest. Pt is A/O x 3. Vapotherm applied per respiratory. PIV x2 initiated. Dr. Blair and Dr. Estevez notified of deteriorating condition. Phone orders received and implemented. Labs and ABG sent to lab. Both providers on their way to bedside KATI. Monitoring closely.
--- NOTE | 2019-06-24 17:51 | Progress Note - Hospitalist ---
Progress Note Pt admitted for pleural effusion and concern for lung mass or underlying malignancy. Underwent thoracentesis this afternoon by Dr Blair with 1000cc drained. Shortly afterwards patient developed a-fib with RVR and hypotension (SBP in the 60s). IVF ordered, transferred to the ICU for cardiology consult and cardizem if able pending on how hypotension improves. Manual blood pressure reveals BP 90/50 upon transfer to the ICU. K normal. Mag normal. TSH ordered. Mildly anemic KAVITA STEVENS MD Jun 24, 2019 17:51
[2019-06-24 17:57] LABS: ABG BASE EXCESS -1.1 MMOL/L (-2.5-2.5); ABG OXYGEN SATURATION 96 % (94-100); ABG PCO2 27 MMHG (35-45); ABG PH 7.52 (7.37-7.43); ABG PO2 71 MMHG (79-93); ABG TCO2 22.2 MMOL/L (21.0-31.0)
[2019-06-24 17:58] LABS: ALLENS TEST POSITIVE; PATIENT TEMP 99.5; VENTILATOR NO
[2019-06-24] MEDS: RT-ALBUTEROL/IPRATROPIUM 3 ML (DUONEB) VIAL IH SCH ×2 (18:12→22:46)
[2019-06-24] MEDS ORDERED: MIDAZOLAM 2 MG/2 ML (VERSED) VIAL ONE (18:14)
[2019-06-24] MEDS ORDERED: NS IV 500 ML 500 ML ONE (18:18)
--- NOTE | 2019-06-24 18:24 | Diagnostic Imaging Report ---
INDICATION: Increasing shortness of air. TIME OF EXAM: 06:08 p.m. COMPARISON: Correlation is made with prior chest radiographs earlier the same day. FINDINGS: There is some increasing opacification of the left hemithorax since earlier today. This may be owing to increasing consolidation versus increasing pleural fluid. There is some aerated lung in the left upper lung field. Mid and lower lung mcginnis remain opacified. Right lung is well aerated. No pneumothorax is seen. IMPRESSION: Increasing pleural fluid versus consolidation in the left lung when compared with study earlier the same day. Dictated by: Dictated on workstation # [id number]
[2019-06-24] MEDS ORDERED: proPOfol 200 MG/20 ML (DIPRIVAN) VIAL IV ONE (18:27)
[2019-06-24] MEDS ORDERED: PROPOFOL DRIP (ICU) 100 ML IV ONE (18:27)
[2019-06-24] MEDS ORDERED: MIDAZOLAM 2 MG/2 ML (VERSED) VIAL IM ONE (18:30)
[2019-06-24] MEDS ORDERED: DILTIAZEM 125 MG/25 ML IV (CARDIZEM) IV ONE ×2 (18:32→18:40)
[2019-06-24 18:41] LABS: BASOPHILS % (AUTO) 0 % (0-10); EOSINOPHILS % (AUTO) 0 % (0-10); HEMATOCRIT 31 % (35-52); HEMOGLOBIN 9.7 G/DL (11.5-16.0); LYMPHOCYTES # (AUTO) 0.4 X 10^3 (1.0-4.0); LYMPHOCYTES % (AUTO) 2 % (12-44); MEAN CORPUSCULAR HEMOGLOBIN 25 PG (25-34); MEAN CORPUSCULAR HGB CONC 32 G/DL (32-36); MEAN CORPUSCULAR VOLUME 78 FL (80-99); MEAN PLATELET VOLUME 10.4 FL (7.4-10.4); MONOCYTES # (AUTO) 0.7 X 10^3 (0.0-1.0); MONOCYTES % (AUTO) 4 % (0-12); NEUTROPHILS # (AUTO) 15.9 X 10^3 (1.8-7.8); NEUTROPHILS % (AUTO) 93 % (42-75); PLATELET COUNT 933 10^3/uL (130-400); RED CELL DISTRIBUTION WIDTH 14.6 % (10.0-14.5)
[2019-06-24] MEDS ORDERED: NS (IVPB) 100 ML ONE ×2 (18:41→22:52)
[2019-06-24 18:43] LABS: INR 1.3 (0.8-1.4); PROTHROMBIN TIME PATIENT 16.8 SEC (12.2-14.7)
[2019-06-24 18:44] LABS: BODY FLUID WBC TOTAL COUNT 91 /uL
[2019-06-24 18:45] LABS: BF OTHER CELLS 7 %; BODY FLUID RBC COUNT 86 /uL; LYMPHOCYTES,BODY FLUID 11 %
[2019-06-24] MEDS ORDERED: DILTIAZEM 25 MG/5 ML INJ (CARDIZEM) VIAL IVP ONE (18:45)
[2019-06-24] MEDS ORDERED: DILTIAZEM IV FOR DRIP 125 MG in NS (IVPB) 100 ML IV SCH (18:45)
[2019-06-24 18:48] LABS: BODY FLUID PH 7.3
[2019-06-24 19:01] LABS: ALANINE AMINOTRANSFERASE 14 U/L (0-55); ALBUMIN 2.9 GM/DL (3.2-4.5); ALKALINE PHOSPHATASE 144 U/L (40-136); BILIRUBIN,TOTAL 0.6 MG/DL (0.1-1.0); BUN/CREATININE RATIO 30; CALCIUM 9.2 MG/DL (8.5-10.1); CARBON DIOXIDE 21 MMOL/L (21-32); CHLORIDE 103 MMOL/L (98-107); CREATININE SERUM 0.63 MG/DL (0.60-1.30); GFR ESTIMATED > 60; GLUCOSE 109 MG/DL (70-105); MAGNESIUM 1.9 MG/DL (1.6-2.4); PHOSPHORUS 2.9 MG/DL (2.3-4.7); POTASSIUM 3.9 MMOL/L (3.6-5.0); SODIUM 137 MMOL/L (135-145); TOTAL PROTEIN 6.5 GM/DL (6.4-8.2)
--- NOTE | 2019-06-24 19:09 | Pulmonary Procedures ---
Pulmonary Procedures Date of Procedure Date of Service: Jun 24, 2019 Reason for Intubation: respiratory failure Time of Intubation: 19:08 Intubation Method: orotracheal (7.5) Tube Size: 7.5 Medications: Propofol, Succinylcholine, Versed Positive End Tide CO2: Yes Breath Sounds after Intubation: bilateral-equal Intubation Complications: no complications Post Intubation Xray: Yes ZACK HARRIS DO Jun 24, 2019 19:09
--- NOTE | 2019-06-24 19:09 | Consultation-Cardiology ---
HPI-Cardiology Cardiology Consultation Date of Consultation 06/24/19 Date of Admission Time Seen by Provider: 19:04 Indication: Tachycardia HPI 74-year-old lady had history of colon polyp underwent thoracentesis for large left-sided pleural effusion as afternoon, was doing well initially, still short of breath, went to atrial fibrillation with rapid ventricular response with hea rt rate 170 and became hypotensive with blood pressure systolic of 70. Patient was transferred to ICU. Started on IV fluid, continue to be in atrial flutter ablation had few breakthrough sinus rhythm, was in respiratory failure. Patient denied any previous cardiac history no chest pain. Was feeling tired and short of breath, Dr. Blair arrived and proceeded with intubation the electrical cardioversion in twice successful after patient was bolused with Cardizem and started on a drip Home Medications & Allergies Allergies: Coded Allergies: Tetracyclines (Verified Allergy, Mild, HIVE, 04/25/19) Home Medication List Reviewed: Yes EQV-Cnbglb-Asdaom Hx Patient Social History Type Used: Cigarettes 2nd Hand Smoke Exposure: Yes Recent Foreign Travel: No Recent Infectious Disease Expo: No Recent Hopitalizations: No Immunizations Up To Date Tetanus Booster (TDap): Unknown Past Medical History No previous history of atrial fibrillation or coronary artery disease Review of Systems-General Review of Systems Constitutional: other (She is in respiratory distress, shortness of breath, respiratory failure generalized weakness. No chest pain, unable to provide full review of systems) Reviewed Test Results Reviewed Test Results Lab Laboratory Tests Test 06/24/19 15:44 06/24/19 16:15 06/24/19 16:40 06/24/19 17:50 Range/Units White Blood Count 14.4 H 4.3-11.0 10^3/uL Red Blood Count 3.42 L 4.35-5.85 10^6/uL Hemoglobin 8.4 L 11.5-16.0 G/DL Hematocrit 27 L 35-52 % Mean Corpuscular Volume 78 L 80-99 FL Mean Corpuscular Hemoglobin 25 25-34 PG Mean Corpuscular Hemoglobin Concent 32 32-36 G/DL Red Cell Distribution Width 14.5 10.0-14.5 % Platelet Count 897 H 130-400 10^3/uL Mean Platelet Volume 9.8 7.4-10.4 FL Neutrophils (%) (Auto) 89 H 42-75 % Lymphocytes (%) (Auto) 4 L 12-44 % Monocytes (%) (Auto) 7 0-12 % Eosinophils (%) (Auto) 0 0-10 % Basophils (%) (Auto) 0 0-10 % Neutrophils # (Auto) 12.8 H 1.8-7.8 X 10^3 Lymphocytes # (Auto) 0.6 L 1.0-4.0 X 10^3 Monocytes # (Auto) 1.1 H 0.0-1.0 X 10^3 Eosinophils # (Auto) 0.0 0.0-0.3 10^3/uL Basophils # (Auto) 0.0 0.0-0.1 10^3/uL Neutrophils % (Manual) 88 % Lymphocytes % (Manual) 4 % Monocytes % (Manual) 4 % Eosinophils % (Manual) 1 % Band Neutrophils 3 % Hypersegmented Neutrophils SLIGHT Toxic Granulation 1+ Rouleau MARKED Prothrombin Time 16.8 H 12.2-14.7 SEC INR Comment 1.3 0.8-1.4 Activated Partial Thromboplast Time 31 24-35 SEC Sodium Level 137 135-145 MMOL/L Potassium Level 3.9 3.6-5.0 MMOL/L Chloride Level 101 98-107 MMOL/L Carbon Dioxide Level 27 21-32 MMOL/L Anion Gap 9 5-14 MMOL/L Blood Urea Nitrogen 20 H 7-18 MG/DL Creatinine 0.63 0.60-1.30 MG/DL Estimat Glomerular Filtration Rate > 60 BUN/Creatinine Ratio 32 Glucose Level 103 70-105 MG/DL Calcium Level 9.3 8.5-10.1 MG/DL Corrected Calcium 10.3 H 8.5-10.1 MG/DL Phosphorus Level 3.2 2.3-4.7 MG/DL Magnesium Level 2.0 1.6-2.4 MG/DL Total Bilirubin 0.4 0.1-1.0 MG/DL Aspartate Amino Transf (AST/SGOT) 10 5-34 U/L Alanine Aminotransferase (ALT/SGPT) 15 0-55 U/L Alkaline Phosphatase 132 40-136 U/L Lactate Dehydrogenase 141 125-220 U/L Total Protein 6.0 L 6.4-8.2 GM/DL Albumin 2.8 L 3.2-4.5 GM/DL Amylase Level 16 L 25-125 U/L Lipase 4 L 8-78 U/L Thyroid Stimulating Hormone (TSH) 0.20 L 0.35-4.94 UIU/ML Body Fluid Source PLEURAL Body Fluid Color JENNY Body Fluid Appearance SLT CLDY Body Fluid pH 7.3 Body Fluid WBC 91 /uL Body Fluid RBC 86 /uL Body Fluid Polynuclear WBCs 74 % Body Fluid Mononuclear WBCs 15 % Body Fluid Lymphocytes 11 % Body Fluid Other Cells 7 % Body Fluid Glucose 102 MG/DL Body Fluid Total Protein 3.6 G/DL Body Fluid Lactate Dehydrogenase 349 U/L Lactic Acid Level 1.15 0.50-2.00 MMOL/L Blood Gas Puncture Site RIGHT RADIAL Blood Gas Patient Temperature 99.5 Arterial Blood pH 7.52 H 7.37-7.43 Arterial Blood Partial Pressure CO2 27 L 35-45 MMHG Arterial Blood Partial Pressure O2 71 L 79-93 MMHG Arterial Blood HCO3 21 L 23-27 MMOL/L Arterial Blood Total CO2 22.2 21.0-31.0 MMOL/L Arterial Blood Oxygen Saturation 96 94-100 % Arterial Blood Base Excess -1.1 -2.5-2.5 MMOL/L Ambrosio Test POSITIVE Blood Gas Ventilator Setting NO Blood Gas Inspired Oxygen N/A Test 06/24/19 18:30 06/24/19 18:40 Range/Units White Blood Count 17.0 H 4.3-11.0 10^3/uL Red Blood Count 3.95 L 4.35-5.85 10^6/uL Hemoglobin 9.7 L 11.5-16.0 G/DL Hematocrit 31 L 35-52 % Mean Corpuscular Volume 78 L 80-99 FL Mean Corpuscular Hemoglobin 25 25-34 PG Mean Corpuscular Hemoglobin Concent 32 32-36 G/DL Red Cell Distribution Width 14.6 H 10.0-14.5 % Platelet Count 933 H 130-400 10^3/uL Mean Platelet Volume 10.4 7.4-10.4 FL Neutrophils (%) (Auto) 93 H 42-75 % Lymphocytes (%) (Auto) 2 L 12-44 % Monocytes (%) (Auto) 4 0-12 % Eosinophils (%) (Auto) 0 0-10 % Basophils (%) (Auto) 0 0-10 % Neutrophils # (Auto) 15.9 H 1.8-7.8 X 10^3 Lymphocytes # (Auto) 0.4 L 1.0-4.0 X 10^3 Monocytes # (Auto) 0.7 0.0-1.0 X 10^3 Eosinophils # (Auto) 0.0 0.0-0.3 10^3/uL Basophils # (Auto) 0.0 0.0-0.1 10^3/uL Sodium Level 137 135-145 MMOL/L Potassium Level 3.9 3.6-5.0 MMOL/L Chloride Level 103 98-107 MMOL/L Carbon Dioxide Level 21 21-32 MMOL/L Anion Gap 13 5-14 MMOL/L Blood Urea Nitrogen 19 H 7-18 MG/DL Creatinine 0.63 0.60-1.30 MG/DL Estimat Glomerular Filtration Rate > 60 BUN/Creatinine Ratio 30 Glucose Level 109 H 70-105 MG/DL Lactic Acid Level 1.42 0.50-2.00 MMOL/L Calcium Level 9.2 8.5-10.1 MG/DL Corrected Calcium 10.1 8.5-10.1 MG/DL Phosphorus Level 2.9 2.3-4.7 MG/DL Magnesium Level 1.9 1.6-2.4 MG/DL Total Bilirubin 0.6 0.1-1.0 MG/DL Aspartate Amino Transf (AST/SGOT) 12 5-34 U/L Alanine Aminotransferase (ALT/SGPT) 14 0-55 U/L Alkaline Phosphatase 144 H 40-136 U/L Total Protein 6.5 6.4-8.2 GM/DL Albumin 2.9 L 3.2-4.5 GM/DL Physical Exam Physical Exam Vital Signs Vital Signs - First Documented 06/24/19 06/24/19 15:12 18:00 Temp 100.2 Pulse 90 Resp 40 B/P (MAP) 135/75 Pulse Ox 94 O2 Delivery Room Air O2 Flow Rate 40.00 FiO2 100 Capillary Refill : Height, Weight, BMI Height: 5'1.00" Weight: 86lbs. 0.0oz. [id number]; 16.6 BMI Method: General Appearance: WD/WN, Severe Distress Eyes: Bilateral Eye Normal Inspection, Bilateral Eye PERRL, Bilateral Eye EOMI HEENT: PERRL/EOMI, TMs Normal, Normal ENT Inspection, Pharynx Normal, Moist Mucous Membranes Neck: Full Range of Motion, Normal Inspection, Non Tender, Supple, Carotid Bruit Respiratory: Accessory Muscle Use, Decreased Breath Sounds, Respiratory Distress Cardiovascular: No Edema, No Gallop, No JVD, No Murmur, Normal Peripheral Pulses, Irregularly Irregular, Tachycardia Gastrointestinal: Normal Bowel Sounds, No Organomegaly, No Pulsatile Mass, Non Tender, Soft Back: Normal Inspection, No CVA Tenderness, No Vertebral Tenderness Extremity: Normal Capillary Refill, Normal Inspection, Normal Range of Motion, Non Tender, No Calf Tenderness, No Pedal Edema Neurologic/Psychiatric: Alert, Oriented x3, No Motor/Sensory Deficits, Normal Mood/Affect Skin: Normal Color, Warm/Dry Lymphatic: No Adenopathy A/P-Cardiology Admission Diagnosis Hypotensive shock Atrial fibrillation with rapid ventricular response Tachycardia Acute respiratory failure Left pleural effusion Assessment/Plan Hypotensive shock secondary to tachycardia, currently in atrial fibrillation. Responded to IV fluid temporarily received Cardizem and received DC cardioversion and was successful in terminating atrial fibrillation New-onset atrial flutter ablation without ventricular response, responded to Cardizem and cardioversion, continue to monitor at this time Large left-sided pleural effusion, underwent thoracentesis this afternoon, managed by Dr. Blair next Acute respiratory failure, intubated. Vent-dependent Colon polyp JOSEPH WEBBER MD Jun 24, 2019 19:08
--- NOTE | 2019-06-24 19:11 | History & Physical-Hospitalist ---
History of Present Illness HPI/Chief Complaint Pt is a 74yoCF with a PMH of HTN who was directed admitted from Dr Blair's office due to a pleural effusion with collapse of left upper and lower lobes and occlusion of left main stem bronchus. She underwent bedside thoracentesis this afternoon and had 1000cc drained and sent for cytology and culture. She then developed a-fib with RVR and was transferred to the ICU. Her rates were in the 170s and she was hypotensive (60s/40). She responded to a 1L bolus with increase in Bp to 90s/60. She remained in a-fib and quickly became hypotensive again. Cardiology was consulted for cardioversion. She also complained of shortness of breath and an ABG revealed respiratory alkalosis. She was intubated by Dr lBair with subsequent cardioversion by Dr Estevez. Exam Limitations: clinical condition Date Seen 06/24/19 Time Seen by a Provider: 19:07 Attending Physician Marta Summers MD PCP No,Local Physician Referring Physician Date of Admission Jun 24, 2019 at 14:40 Home Medications & Allergies Home Medications Reviewed patient Home Medication Reconciliation performed by pharmacy medication reconciliations tissue recovery technician and/or nursing. Patients Allergies have been reviewed. Allergies Allergies Coded Allergies Tetracyclines (Verified Allergy, Mild, HIVE, 04/25/19) Past Tnwzfoy-Zvspcp-Homnch Hx Past Med/Social Hx: Reviewed Nursing Past Med/Soc Hx Patient Social History Smoking Status: Current Someday Smoker Type Used: Cigarettes 2nd Hand Smoke Exposure: Yes Recent Foreign Travel: No Contact w/other who traveled: No Recent Hopitalizations: No Recent Infectious Disease Expo: No Immunizations Up To Date Tetanus Booster (TDap): Unknown Seasonal Allergies Seasonal Allergies: Yes Past Medical History Currently Using CPAP: No Currently Using BIPAP: No Cardiac: Hypertension Sexually Transmitted Disease: No HIV/AIDS: No Female Reproductive Disorders: Denies Gastrointestinal: Gastroesophageal Reflux, Chronic Constipation Musculoskeletal: Arthritis Loss of Vision: Denies Hearing Impairment: Denies History of Blood Disorders: No Adverse Reaction to Blood Orozco: No (N/A) Family History Reviewed Nursing Family Hx Cancer (stomach and breast) Review of Systems ROS-Unable to Obtain: Intubated and sedated Constitutional: see HPI Physical Exam Physical Exam Vital Signs Vital Signs - First Documented 06/24/19 06/24/19 15:12 18:00 Temp 100.2 Pulse 90 Resp 40 B/P (MAP) 135/75 Pulse Ox 94 O2 Delivery Room Air O2 Flow Rate 40.00 FiO2 100 Capillary Refill : Height, Weight, BMI Height: 5'1.00" Weight: 86lbs. 0.0oz. 39.823059an; 16.6 BMI Method: General Appearance: Chronically ill, Cachetic HEENT: Moist Mucous Membranes; No Scleral Icterus (L), No Scleral Icterus (R) Neck: Normal Inspection, Supple, Thyromegaly Respiratory: Rhonci, Other (intubated) Cardiovascular: No Murmur, Irregularly Irregular, Tachycardia Gastrointestinal: Normal Bowel Sounds, Non Tender, Soft Genital/Rectal: Other (ramon in place) Extremity: Normal Capillary Refill, Normal Inspection, No Pedal Edema Neurologic/Psychiatric: Other (sedated) Skin: Normal Color, Warm/Dry Results Results/Procedures Labs Laboratory Tests 06/24/19 15:44 06/24/19 18:30 06/25/19 03:00 Patient resulted labs reviewed. Imaging: Reviewed Imaging Films, Reviewed Imaging Report Imaging Date of Exam: 06/23/19 CT CHEST W PROCEDURE: CT chest with contrast only. TECHNIQUE: Multiple contiguous axial images were obtained through the chest after administration of intravenous contrast. Auto Exposure Controls were utilized during the CT exam to meet ALARA standards for radiation dose reduction. INDICATION: Shortness of air with exertion. COMPARISON: No prior studies are available for comparison. FINDINGS: The left lobe of the thyroid appears to be enlarged and contain multiple low densities. There is a very large left-sided pleural effusion. There is complete opacification of the left hemithorax. There is significant atelectasis and collapse of the left upper and left lower lobe. An underlying central lesion cannot be entirely excluded. There appears to be occlusion of the left main stem bronchus. There is soft tissue fullness in the subcarinal region and adenopathy is suspected. No other mediastinal mass is seen. Right hilum is unremarkable. Tiny density in the medial right upper lobe is noted measuring 11 mm. Tiny subpleural nodule in the lateral portion of the right upper lobe are noted 2-3 mm in size. Otherwise the right lung is clear. No pericardial fluid is identified. Bony structures are nonacute. IMPRESSION: 1. Large left pleural effusion with complete collapse of the left upper and left lower lobe. There is occlusion of the left main stem bronchus. Soft tissue masslike density in the subcarinal region is noted. Bronchoscopy would be recommended. Right lung is grossly unremarkable apart from a small slight irregular density in the medial right upper lobe, indeterminate and continued followup would be recommended. Assessment/Plan Admission Diagnosis Acute Respiratory Failure A-fib with RVR Admission Status: Inpatient Order (span 2 midnights) Reason for Inpatient Admission: Intubated, sedated, cardiogenic shock on pressors Assessment and Plan Acute Respiratory Failure Left pleural effusion with complete collapse of upper and lower lobe and occlusion of main stem bronchus Sepsis from pneumonia Pulm consulted, appreciate recs S/p thoracentesis by Dr Blair Fluid sent for cytology, cell count, and cultures [facility] Zosyn Cultures pending Plan for bronch tomorrow Atrial Fibrillation with RVR Cardiogenic Shock Cardiology consulted, appreciate recs s/p cardioversion by Dr Estevez Echo being done currently Hold anticoagulation for bronch tomorrow Cardizem gtt HTN Hold elver emeds for hypotension Cachexia Malnutrition nutrtion consul Concern for underlying malignancy Elevated TSH T4 pending Anemia, normocytic Had EGD and colonoscopy done last month Trend Check iron Diagnosis/Problems Diagnosis/Problems (1) Acute respiratory failure Status: Acute (2) Atrial fibrillation with RVR Status: Acute (3) Essential (primary) hypertension Status: Chronic (4) Pleural effusion on left Status: Acute (5) Mass of left lung Status: Acute (6) Cardiogenic shock Status: Acute (7) Cachexia Status: Chronic (8) Protein-energy malnutrition Status: Chronic Qualifiers: Protein-calorie malnutrition severity: moderate Qualified Codes: E44.0 - Moderate protein-calorie malnutrition (9) Microcytic anemia Status: Chronic (10) Thrombocytosis Status: Chronic MARTA SUMMERS MD Jun 24, 2019 19:11
--- NOTE | 2019-06-24 19:15 | Pulmonary Procedures ---
Pulmonary Procedures Date of Procedure Date of Service: Jun 24, 2019 Lumen: triple (Unable to obtain ) Central Line Procedure: betadine prep, sterile drapes applied, sterile dressing applied Position: internal jugular (R) Anesthesia: local Volume Anesthetic (ccs): 5 Complications: none ZACK HARRIS DO Jun 24, 2019 19:15
[2019-06-24] MEDS ORDERED: fentaNYL INJECTION 100 MCG/2 ML AMP ONE (19:20)
--- NOTE | 2019-06-24 19:23 | Anesthesia-Procedure Note ---
Procedures/Interventions Procedure Start/Stop/Diagnosis Date of Procedure: Jun 24, 2019 Start Time: 19:05 Stop Time: 19:10 Arterial Line Arterial Line Catheter: 20G Type: Radial Location: Right Procedure: prepped, draped in sterile fashion, good wave-form was obtained, patient tolerated procedure well, no immediate complications, post procedure area cleaned, post procedure dressing applied ARTI TANNER CRNA Jun 24, 2019 19:23
[2019-06-24] MEDS ORDERED: fentaNYL INJECTION 100 MCG/2 ML AMP IVP PRN (19:30)
--- NOTE | 2019-06-24 19:30 | NUR ---
TIME LINE NOTE: 184 10 MG CARDIZEM GIVEN 1849 2 OF VERSED 1850 CARDIZEM GRR STARTED AT 5 3 2 OF VERSED 1852 3 CC PROPOFOL 1853 3 CC PROPOFOL 1855 2 SUCC 1857 8 ETT ATTEMPTED FAILED BY DR HARRIS 1858 7.[address] HARRIS COLOR CHANGE PRESENT 23 AT THE TEETH 1899 DR. WEBBER CLEAR PATIENT, SHOCK DELIVERED. PATIENT RHYTHM CHANGE TO SR 1919 CARDIZEM GTT TURNED OFF
--- NOTE | 2019-06-24 19:36 | Cardiac Procedure Note-CS/ASA ---
Pre-Procedure Note Pre-Op Procedure Note H&P Reviewed The H&P was reviewed, patient examined and no changes noted. Date H&P Reviewed: Jun 24, 2019 Time H&P Reviewed: 18:00 Conscious Sedation Pre-Proced Time 18:00 ASA Score 3 For ASA 3 and 4: Consider anesthesia and medical clearance. Also, for patients with a history of failed moderate sedation consider anesthesia. Airway Lungs Heart ASA score ASA 1: a normal healthy patient ASA 2: a patient with a mild systemic disease (mid diabetes, controlled hypertension, obesity ASA 3: a patient with a severe systemic disease that limits activity (angina, COPD, prior Myocardial infarction) x ASA 4: a patient with an incapacitating disease that is a constant threat to life (CHF, renal failure) ASA 5: a moribund patient not expected to survive 24 hrs. (ruptured aneurysm) ASA 6: a declared brain- patient whose organs are being harvested. For emergent operations, add the letter E after the classification Mallampati Classification Grade 3 Sedation Plan Analgesia, Amnesia, Plan communicated to team members, Discussed options with patient/fam, Discussed risks with patient/fam The patient is an appropriate candidate to undergo the planned procedure, sedation, and anesthesia. The patient immediately re-assessed prior to indication. JOSEPH WEBBER MD Jun 24, 2019 19:36
--- NOTE | 2019-06-24 19:37 | Cardioversion ---
Cardioversion PROCEDURE PHYSICIAN: Joseph Estevez DATE OF PROCEDURE: 06/24/19 DIRECT EXTERNAL ELECTRICAL CARDIOVERSION: Indications: Atrial Fibrillation with rapid ventricular rate Preoperative diagnoses: Atrial Fibrillation with rapid ventricular rate Postoperative diagnosis: Sinus rhythm, Successful Electrical Cardioversion Anesthesia: By Anesthesia services Complications: None Specimen: None Contrast: 0 Flouroscopy: none Procedure Details: The patient was sedated and intubated, procedure was explained prior to intubation. Electrical cardioversion was carried out with anesthesia support with propofol. 200 joules of synchronized shock was delivered through external patches which promptly restored sinus rhythm. The patient tolerated the procedure well. Conclusions: successful electrical cardioversion JOSEPH ESTEVEZ MD Jun 24, 2019 19:37
[2019-06-24] MEDS ORDERED: NS (IVPB) 250 ML ONE (19:58)
[2019-06-24] MEDS ORDERED: niCARdipine IV FOR DRIP 50 MG KIT ONE (19:58)
[2019-06-24] MEDS ORDERED: NS IV 1000 ML 1,000 ML IV ONE (20:00)
[2019-06-24] MEDS ORDERED: NOREPINEPHRINE 4 MG/4 ML (LEVOPHED) AMP IV ONE (20:00)
--- NOTE | 2019-06-24 20:00 | NUR ---
Attempt to place central line failed. Dr Blair stated okay to run levophed through io in left lower extremity.
--- NOTE | 2019-06-24 20:39 | Diagnostic Imaging Report ---
INDICATION: Endotracheal tube placement. COMPARISON: Earlier the same day FINDINGS: Single frontal radiographic view of the chest was obtained and demonstrates indwelling endotracheal tube with tip at the clavicular heads. There appears to be gastric tube as well, tip of which extends inferiorly beyond the [id number]. Lungs continue to show significant dense consolidation of the left mid and lower lung field with moderate patchy alveolar infiltrates of the left upper lung as well. Right lung is relatively clear. Overall, aeration is stable compared to prior exam. There is no large effusion on the right. No pneumothorax is seen on either side. Cardiac silhouette is obscured. IMPRESSION: 1. Indwelling lines and tubes as above. Otherwise, stable exam of the chest showing significant left-sided infiltrate. Dictated by: Dictated on workstation # [id number]
[2019-06-24] MEDS ORDERED: NOREPINEPHRINE 4 MG in NS (IVPB) 250 ML IV SCH (21:00)
[2019-06-24 21:21] LABS: ABG BASE EXCESS -6.3 MMOL/L (-2.5-2.5); ABG OXYGEN SATURATION 100 % (94-100); ABG PCO2 27 MMHG (35-45); ABG PH 7.42 (7.37-7.43); ABG PO2 186 MMHG (79-93); ABG TCO2 18.5 MMOL/L (21.0-31.0); ALLENS TEST YES-POS; PATIENT TEMP 95.3; VENTILATOR YES
--- NOTE | 2019-06-24 21:35 | NUR ---
UPDATED LIGIA KHOURY DAUGHTER OF PT CONDITION.
--- NOTE | 2019-06-24 22:30 | NUR ---
Dr Uribe placed central line.
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
[2019-06-24] MEDS ORDERED: PIPERACILLIN/TAZO 4.5 GM VIAL (ZOSYN) IV ONE (22:51)
[2019-06-24] MEDS: PIPERACILLIN/TAZOBACTAM (BULK) 4.5 GM in NS (IVPB) 100 ML IV SCH (23:03)
[2019-06-24 23:36] LABS: ABG BASE EXCESS -5.6 MMOL/L (-2.5-2.5); ABG OXYGEN SATURATION 69 % (94-100); ABG PCO2 34 MMHG (35-45); ABG TCO2 20.2 MMOL/L (21.0-31.0)
--- NOTE | 2019-06-24 23:37 | Progress Note-Post Operative ---
Post-Operative Progess Note Surgeon (s)/Health Care Analyst (s) Surgeon IAN STEPHEN DO Health Care Analyst: na Pre-Operative Diagnosis hypotension Post-Operative Diagnosis same Procedure & Operative Findings Date of Procedure 06/24/19 Procedure Performed/Findings right u/s guided central line placement Anesthesia Type local/sedation Estimated Blood Loss Estimated blood loss (mL): min Specimens/Packing Specimens Removed na IAN STEPHEN DO Jun 24, 2019 23:37
[2019-06-24 23:38] LABS: ABG PO2 38 MMHG (79-93)
[2019-06-24 23:40] LABS: ABG PH 7.36 (7.37-7.43); INSPIRED O2 30%; PATIENT TEMP 96.1; VENTILATOR YES
[2019-06-25] VITALS (13 sets, daily range): BP systolic 92–131; BP diastolic 40–67
[2019-06-25] MEDS ORDERED: PROPOFOL DRIP (ICU) 100 ML IV SCH
--- NOTE | 2019-06-25 00:06 | OPERATIVE REPORT ---
DATE OF SERVICE: 06/24/2019 PREOPERATIVE DIAGNOSIS: Hypotension. POSTOPERATIVE DIAGNOSIS: Hypotension. PROCEDURE: Right ultrasound-guided central line placement. SURGEON: Ian Uribe DO ANESTHESIA: Local with sedation. ESTIMATED BLOOD LOSS: Minimal. COMPLICATIONS: None. INDICATIONS: The patient is a 74-year-old female who has been intubated. A previous attempt of central line has already been made and unsuccessful. The patient has been hypotensive and requiring Levophed at this time. I have been asked for central line placement. DESCRIPTION OF PROCEDURE: The patient was prepped and draped in sterile fashion. A timeout was performed. Local anesthetic was infiltrated into the right internal jugular vein. Ultrasound was used to locate the right internal jugular vein and the right internal jugular vein was then accessed under guidance of the ultrasound. Dark nonpulsatile blood was withdrawn. Guidewire was inserted through the needle and the needle was removed. An 11 blade scalpel was used to make a skin incision. Dilator was then advanced over the guidewire and removed and the triple lumen catheter was then inserted over the guidewire and the wire was removed. All ports were accessed and flushed without difficulty. The catheter was secured with 4-0 silk suture. The area was washed and dried and sterile bandage was applied. The patient tolerated procedure well without any complications. Chest x-ray pending. Job ID: [id number] DocumentID: [id number] Dictated Date: 06/24/2019 23:36:53 Agricultural Service Worker Date: 06/25/2019 00:06:16 Dictated By: IAN URIBE DO
[2019-06-25] MEDS: inSUlin ASPART (NovoLOG) 1 UNIT/0.01 ML (CHARGE PER UNIT) SC SCH ×2 (00:33→04:46)
[2019-06-25] MEDS: NS IV 1000 ML 1,000 ML IV SCH (00:44)
[2019-06-25] MEDS: RT-ALBUTEROL/IPRATROPIUM 3 ML (DUONEB) VIAL IH SCH ×2 (02:07→06:38)
[2019-06-25 03:10] LABS: BASOPHILS % (AUTO) 0 % (0-10); EOSINOPHILS % (AUTO) 0 % (0-10); HEMATOCRIT 24 % (35-52); HEMOGLOBIN 7.5 G/DL (11.5-16.0); LYMPHOCYTES # (AUTO) 0.3 X 10^3 (1.0-4.0); LYMPHOCYTES % (AUTO) 2 % (12-44); MEAN CORPUSCULAR HEMOGLOBIN 24 PG (25-34); MEAN CORPUSCULAR HGB CONC 31 G/DL (32-36); MEAN CORPUSCULAR VOLUME 78 FL (80-99); MEAN PLATELET VOLUME 10.1 FL (7.4-10.4); MONOCYTES # (AUTO) 0.3 X 10^3 (0.0-1.0); MONOCYTES % (AUTO) 2 % (0-12); NEUTROPHILS # (AUTO) 16.3 X 10^3 (1.8-7.8); NEUTROPHILS % (AUTO) 97 % (42-75); PLATELET COUNT 705 10^3/uL (130-400); RED CELL DISTRIBUTION WIDTH 14.4 % (10.0-14.5); WHITE BLOOD COUNT 16.9 10^3/uL (4.3-11.0)
[2019-06-25 03:11] LABS: ABG BASE EXCESS -6.7 MMOL/L (-2.5-2.5); ABG OXYGEN SATURATION 99 % (94-100); ABG PCO2 29 MMHG (35-45); ABG PH 7.39 (7.37-7.43); ABG PO2 113 MMHG (79-93); ABG TCO2 18.4 MMOL/L (21.0-31.0)
[2019-06-25 03:12] LABS: ALLENS TEST ART LINE; INSPIRED O2 30%; PATIENT TEMP 97.2; VENTILATOR YES
[2019-06-25] MEDS: PROPOFOL DRIP (ICU) 100 ML IV SCH ×2 (03:18→09:30)
[2019-06-25 03:28] LABS: BUN/CREATININE RATIO 33; CALCIUM 7.5 MG/DL (8.5-10.1); CARBON DIOXIDE 16 MMOL/L (21-32); CHLORIDE 111 MMOL/L (98-107); CREATININE SERUM 0.55 MG/DL (0.60-1.30); GFR ESTIMATED > 60; GLUCOSE 154 MG/DL (70-105); MAGNESIUM 1.7 MG/DL (1.6-2.4); PHOSPHORUS 3.6 MG/DL (2.3-4.7); POTASSIUM 3.1 MMOL/L (3.6-5.0); SODIUM 137 MMOL/L (135-145)
[2019-06-25] MEDS: methylPREDNISolone 40 MG/ML (Solu-MEDROL) VIAL IV SCH (04:13)
[2019-06-25] MEDS ORDERED: PIPERACILLIN/TAZO 4.5 GM VIAL (ZOSYN) IV ONE (04:42)
[2019-06-25] MEDS ORDERED: NS (IVPB) 100 ML ONE (04:43)
[2019-06-25] MEDS: POTASSIUM CL 10MEQ/50ML IVPB 50 ML IV SCH ×4 (04:53→06:51)
[2019-06-25] MEDS: MAGNESIUM 1 GM/100 ML IVPB 100 ML IV SCH ×2 (04:53→06:02)
[2019-06-25] MEDS ORDERED: DEXMEDETOMIDINE INJECTION 1,000 MCG in NS (IVPB) 240 ML IV SCH ×2 (05:30→08:00)
[2019-06-25] MEDS ORDERED: NS (IVPB) 50 ML ONE (05:42)
[2019-06-25] MEDS ORDERED: SODIUM BICARB 8.4% 50 MEQ/50 ML VIAL IV ONE (05:45)
[2019-06-25] MEDS ORDERED: KCL 20 MEQ TAB (K-DUR) PO SCH (06:00)
[2019-06-25] MEDS ORDERED: MAGNESIUM 1 GM/100 ML IVPB 100 ML IV SCH (06:00)
[2019-06-25] MEDS ORDERED: POTASSIUM CL 10MEQ/50ML IVPB 50 ML IV SCH (06:00)
[2019-06-25] MEDS: PIPERACILLIN/TAZOBACTAM (BULK) 4.5 GM in NS (IVPB) 100 ML IV SCH (06:00)
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
[2019-06-25] MEDS ORDERED: fentaNYL INJECTION 100 MCG/2 ML AMP IVP ONE (07:00)
--- NOTE | 2019-06-25 07:12 | Diagnostic Imaging Report ---
Indication: Central line placement Comparison: Imaging from same day Technique: Single radiograph of the chest on 06/24/2019 at 2257 hrs. Findings: Interval placement of a right IJ central venous catheter with the distal tip likely overlying the expected location of the mid superior vena cava. No pneumothorax. Endotracheal tube and enteric catheter are stable. Extensive opacification of the left hemithorax, particularly inferiorly is again identified, appearing stable. Leftward shift of the mediastinum is again identified and stable. No new focal pulmonary opacities. Osseous structures stable. Impression: Interval placement of a right IJ central venous catheter with the distal tip overlying the expected location of the mid superior vena cava without evidence of a pneumothorax. Otherwise, similar examination including extensive opacification of the left hemithorax. Dictated by: Dictated on workstation # [id number]
--- NOTE | 2019-06-25 07:50 | Diagnostic Imaging Report ---
INDICATION: Dyspnea. Intubation. COMPARISON: 06/24/2019. FINDINGS: ET tube, NG tube and IJ to remain unchanged in position. There continues to be volume loss on the left with extensive opacification of the majority the left hemithorax. Compensatory hyperaeration of the right lung remains present without acute infiltrate. IMPRESSION: Persistent atelectasis and infiltrate throughout the left lung unchanged. Dictated by: Dictated on workstation # [id number]
[2019-06-25] MEDS ORDERED: POTASSIUM PHOSPHATE INJ 15 MM in NS (IVPB) 250 ML IV ONE (08:00)
--- NOTE | 2019-06-25 08:48 | Pulmonary Procedures ---
Pulmonary Procedures Date of Procedure Date of Service: Jun 25, 2019 Bronch Bronchoscopy with bilateral left bronchial washes and, brushes of left mainstem bronchus. 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 Complications: none After informed consent obtained and formal time out pt was sedated using Fentanyl and propofol. Bronchoscope was advanced through the ET tube. 1% lidocaine was used to anesthetize left/right main stem bronchus. 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 Left bronchial washes and, brushes of left mainstem bronchus were obtained. Pt tolerated procedure well. No complications noted. Stat CXR is pending. ZACK HARRIS DO Jun 25, 2019 08:48
--- NOTE | 2019-06-25 08:48 | Cardiology Progress Note ---
Subjective Date Seen by Provider: Jun 25, 2019 Time Seen by Provider: 08:46 Subjective/Events-last exam patient is laying down in bed, sedated and intubated Review of Systems General: Other (sedated and intubated, unable to provide review of systems) Focused Exam Lactate Level 06/24/19 16:40: Lactic Acid Level 1.15 06/24/19 18:30: Lactic Acid Level 1.42 Objective-Cardiology Exam Last Set of Vital Signs Vital Signs 06/25/19 06/25/19 06/25/19 04:00 08:00 08:17 Temp 97.2 Pulse 91 Resp 24 B/P (MAP) 114/43 (66) Pulse Ox 94 O2 Delivery Mechanical Ventilator O2 Flow Rate 30.00 FiO2 30 Capillary Refill : Less Than 3 Seconds I&O Intake and Output 06/25/19 00:00 Intake Total 1120 ml Output Total 150 ml Balance 970 ml Intake IV Total 1120 ml Output Urine Total 150 ml Daily Weight Change Yes, Greater than 33 lbs General: Severe Distress, Other (sedated and intubated) HEENT: Atraumatic Neck: Supple Lungs: Other (bilateral rhonchi) Heart: Regular Rate, Normal S1, Normal S2 Abdomen: Normal Bowel Sounds Extremities: No Clubbing, No Cyanosis Skin: No Rashes Neuro: Other (sedated and intubated) Psych/Mental Status: Other (sedated and intubated) Results Lab Laboratory Tests 06/24/19 15:44 06/24/19 18:30 06/25/19 03:00 A/P-Cardiology Admission Diagnosis Hypotensive shock Atrial fibrillation with rapid ventricular response Tachycardia Acute respiratory failure Left pleural effusion Assessment/Plan Status post hypotensive shock, heart rate is better, blood pressure is better. New-onset atrial fibrillation with rapid ventricular response, status post electrical cardioversion, converted to sinus rhythm. Maintained in sinus rhythm. Lung mass, active bleeding. Patient had Bronchoscopy. Possible transfer to tertiary care center Large left-sided pleural effusion, underwent thoracentesis this afternoon, managed by Dr. Blair next Acute respiratory failure, intubated. Vent-dependent Colon polyp Clinical Quality Measures DVT/VTE Risk/Contraindication: Risk Factor Score Per Nursin RFS Level Per Nursing on Admit: 3=High JOSEPH WEBBER MD Jun 25, 2019 08:48
--- NOTE | 2019-06-25 08:52 | Pulmonary Progress Note ---
Standard Progress Note Progress Notes Time Seen by Provider: 08:49 Bronchoscopy showed large endobronchial mass obstructing left bronchus. I talked to patient's daughter and she agrees with transfer to . Pt needs to be transferred to so attempts can be made to open up left lung. Dayna does not have interventional surgery. I have also discussed with Dr. Summers and family friend who has been caring for patient. I also called and updated Dr. Ochoa who initially referred her to me. Assessment & Plan Acute respiratory failure -Continue vent management. -endobronchial mass s/p bronch -Start TF today after bronchoscopy Opacification of left lung with large left pleural effusion s/p thoracentesis -Pleural fluid sent for cytology Abdominal pain with N/V wt loss - r/o cancer -CA 19-9 pending Hypotension -Start precedex -wean diprivan and levophed down Afib RVR -cardiology following -Cardizem gtt Hypokalemia -replace Malnutrition -Start TF today Critical Care: Critically Ill Patient Time spent with patient (mins): 60 Focused Exam Lactate Level 06/24/19 16:40: Lactic Acid Level 1.15 06/24/19 18:30: Lactic Acid Level 1.42 ZACK HARRIS DO Jun 25, 2019 08:52
[2019-06-25] MEDS ORDERED: FAMOTIDINE 20 MG (PEPCID) TABLET PO SCH (09:00)
[2019-06-25 09:04] LABS: ABG BASE EXCESS -4.9 MMOL/L (-2.5-2.5); ABG OXYGEN SATURATION 97 % (94-100); ABG PCO2 33 MMHG (35-45); ABG PH 7.39 (7.37-7.43); ABG PO2 78 MMHG (79-93); ABG TCO2 20.5 MMOL/L (21.0-31.0)
[2019-06-25 09:05] LABS: ALLENS TEST ART LINE
[2019-06-25 09:06] LABS: INSPIRED O2 30%; PATIENT TEMP 96.8; VENTILATOR YES
--- NOTE | 2019-06-25 09:56 | Discharge Summary ---
Diagnosis/Chief Complaint Date of Admission Jun 24, 2019 at 2:40 pm Date of Discharge Discharge Date: Jun 25, 2019 Admission Diagnosis Acute Respiratory Failure A-fib with RVR Discharge Diagnosis (1) Acute respiratory failure Status: Acute (2) Atrial fibrillation with RVR Status: Acute (3) Essential (primary) hypertension Status: Chronic (4) Pleural effusion on left Status: Acute (5) Mass of left lung Status: Acute (6) Cardiogenic shock Status: Acute (7) Cachexia Status: Chronic (8) Protein-energy malnutrition Status: Chronic (9) Microcytic anemia Status: Chronic (10) Thrombocytosis Status: Chronic Discharge Summary Procedures/Consulations Dr Blair- Pulmonology Dr Estevez- Cardiology Discharge Physical Exam Allergies: Coded Allergies: Tetracyclines (Verified Allergy, Mild, HIVE, 04/25/19) Vitals & I&Os Vital Signs Date Time Temp Pulse Resp B/P (MAP) Pulse Ox O2 Delivery O2 Flow Rate FiO2 06/25/19 09:30 104/42 06/25/19 09:00 93 32 96 Mechanical Ventilator 30.00 06/25/19 08:17 30 06/25/19 04:00 97.2 General Appearance: Chronically ill, Moderate Distress Respiratory: Other (intubated) Cardiovascular: No Murmur, Tachycardia Hospital Course He should've is a 74-year-old female with a past medical history of hypertension and hiatal hernia who presented to Dr. Blair office for surgical clearance for hiatal hernia repair. She had had a CT chest abdomen and pelvis done on 812 which revealed large pleural effusion with coat complete collapse of the left upper and lower lobe and occlusion of the left mainstem bronchus. She was direct admitted for thoracentesis and shortly after 1 L was drained she developed respiratory distress and was found to be in A. fib with RVR. She was transferred to the ICU and became hypotensive. She was bolused en route to the ICU and Cardiology was consulted. Decision was made to cardiovert due to hypotension. She was intubated as well due to respiratory distress. Cardioversion resulted in denominational of sinus rhythm and she was started on cardizem gtt. Anticoagulation was held due to bronchoscopy being done the next morning. She underwent bronchoscopy with Dr Ocasio on 06/25 which again revealed occluded left main stem bronchus and nearly occluded right main stem bronchus due to mass affect. Dr Blair discussed the case with Dr. Rand at [facility] who accepted the patient in transfer to the MICU for endobronchial stenting. Labs (last 24 hrs) Laboratory Tests 06/24/19 15:44: White Blood Count 14.4H, Red Blood Count 3.42L, Hemoglobin 8.4L, Hematocrit 27L, Mean Corpuscular Volume 78L, Mean Corpuscular Hemoglobin 25, Mean Corpuscular Hemoglobin Concent 32, Red Cell Distribution Width 14.5, Platelet Count 897H, Mean Platelet Volume 9.8, Neutrophils (%) (Auto) 89H, Lymphocytes (%) (Auto) 4L, Monocytes (%) (Auto) 7, Eosinophils (%) (Auto) 0, Basophils (%) (Auto) 0, Neutrophils # (Auto) 12.8H, Lymphocytes # (Auto) 0.6L, Monocytes # (Auto) 1.1H, Eosinophils # (Auto) 0.0, Basophils # (Auto) 0.0, Neutrophils % (Manual) 88, Lymphocytes % (Manual) 4, Monocytes % (Manual) 4, Eosinophils % (Manual) 1, Band Neutrophils 3, Hypersegmented Neutrophils SLIGHT, Toxic Granulation 1+, Rouleau MARKED, Prothrombin Time 16.8H, INR Comment 1.3, Activated Partial Thromboplast Time 31, Sodium Level 137, Potassium Level 3.9, Chloride Level 101, Carbon Dioxide Level 27, Anion Gap 9, Blood Urea Nitrogen 20H, Creatinine 0.63, Estimat Glomerular Filtration Rate > 60, BUN/Creatinine Ratio 32, Glucose Level 103, Calcium Level 9.3, Corrected Calcium 10.3H, Phosphorus Level 3.2, Magnesium Level 2.0, Total Bilirubin 0.4, Aspartate Amino Transf (AST/SGOT) 10, Alanine Aminotransferase (ALT/SGPT) 15, Alkaline Phosphatase 132, Lactate Dehydrogenase 141, Total Protein 6.0L, Albumin 2.8L, Amylase Level 16L, Lipase 4L, Thyroid Stimulating Hormone (TSH) 0.20L 06/24/19 16:15: Body Fluid Source PLEURAL, Body Fluid Color JENNY, Body Fluid Appearance SLT CLDY, Body Fluid pH 7.3, Body Fluid WBC 91, Body Fluid RBC 86, Body Fluid Polynuclear WBCs 74, Body Fluid Mononuclear WBCs 15, Body Fluid Lymphocytes 11, Body Fluid Other Cells 7, Body Fluid Glucose 102, Body Fluid Total Protein 3.6, Body Fluid Lactate Dehydrogenase 349 06/24/19 16:40: Lactic Acid Level 1.15 06/24/19 17:50: Blood Gas Puncture Site RIGHT RADIAL, Blood Gas Patient Temperature 99.5, Arterial Blood pH 7.52H, Arterial Blood Partial Pressure CO2 27L, Arterial Blood Partial Pressure O2 71L, Arterial Blood HCO3 21L, Arterial Blood Total CO2 22.2, Arterial Blood Oxygen Saturation 96, Arterial Blood Base Excess -1.1, Ambrosio Test POSITIVE, Blood Gas Ventilator Setting NO, Blood Gas Inspired Oxygen N/A 06/24/19 18:30: White Blood Count 17.0H, Red Blood Count 3.95L, Hemoglobin 9.7L, Hematocrit 31L, Mean Corpuscular Volume 78L, Mean Corpuscular Hemoglobin 25, Mean Corpuscular Hemoglobin Concent 32, Red Cell Distribution Width 14.6H, Platelet Count 933H, Mean Platelet Volume 10.4, Neutrophils (%) (Auto) 93H, Lymphocytes (%) (Auto) 2L , Monocytes (%) (Auto) 4, Eosinophils (%) (Auto) 0, Basophils (%) (Auto) 0, Neutrophils # (Auto) 15.9H, Lymphocytes # (Auto) 0.4L, Monocytes # (Auto) 0.7, Eosinophils # (Auto) 0.0, Basophils # (Auto) 0.0, Sodium Level 137, Potassium Level 3.9, Chloride Level 103, Carbon Dioxide Level 21, Anion Gap 13, Blood Urea Nitrogen 19H, Creatinine 0.63, Estimat Glomerular Filtration Rate > 60, BUN/Creatinine Ratio 30, Glucose Level 109H, Lactic Acid Level 1.42, Calcium Level 9.2, Corrected Calcium 10.1, Phosphorus Level 2.9, Magnesium Level 1.9, Total Bilirubin 0.6, Aspartate Amino Transf (AST/SGOT) 12, Alanine Morrow otransferase (ALT/SGPT) 14, Alkaline Phosphatase 144H, Troponin I < 0.028, Total Protein 6.5, Albumin 2.9L, Triglycerides Level 99 06/24/19 18:40: Free Thyroxine 1.17 06/24/19 21:10: Blood Gas Puncture Site RIGHT RADIAL, Blood Gas Patient Temperature 95.3, Arterial Blood pH 7.42, Arterial Blood Partial Pressure CO2 27L, Arterial Blood Partial Pressure O2 186H, Arterial Blood HCO3 18L, Arterial Blood Total CO2 18.5L, Arterial Blood Oxygen Saturation 100, Arterial Blood Base Excess -6.3L, Ambrosio Test YES-POS, Blood Gas Ventilator Setting YES, Blood Gas Inspired Oxygen 55% 06/24/19 23:20: Blood Gas Puncture Site RIGHT IJ, Blood Gas Patient Temperature 96.1, Arterial Blood pH 7.36L, Arterial Blood Partial Pressure CO2 34L, Arterial Blood Partial Pressure O2 38*L, Arterial Blood HCO3 19L, Arterial Blood Total CO2 20.2L, A rterial Blood Oxygen Saturation 69L, Arterial Blood Base Excess -5.6L, Ambrosio Test NA, Blood Gas Ventilator Setting YES, Blood Gas Inspired Oxygen 30% 06/25/19 00:10: Glucometer 148H 06/25/19 03:00: White Blood Count 16.9H, Red Blood Count 3.07L, Hemoglobin 7.5#L, Hematocrit 24L , Mean Corpuscular Volume 78L, Mean Corpuscular Hemoglobin 24L, Mean Corpuscular Hemoglobin Concent 31L, Red Cell Distribution Width 14.4, Platelet Count 705H, Mean Platelet Volume 10.1, Neutrophils (%) (Auto) 97H, Lymphocytes (%) (Auto) 2L , Monocytes (%) (Auto) 2, Eosinophils (%) (Auto) 0, Basophils (%) (Auto) 0, Neutrophils # (Auto) 16.3H, Lymphocytes # (Auto) 0.3L, Monocytes # (Auto) 0.3, Eosinophils # (Auto) 0.0, Basophils # (Auto) 0.0, Blood Gas Puncture Site RIGHT RADIAL, Blood Gas Patient Temperature 97.2, Arterial Blood pH 7.39, Arterial Blood Partial Pressure CO2 29L, Arterial Blood Partial Pressure O2 113H, Arterial Blood HCO3 18L, Arterial Blood Total CO2 18.4L, Arterial Blood Oxygen Saturation 99, Arterial Blood Base Excess -6.7L, Ambrosio Test ART LINE, Blood Gas Ventilator Setting YES, Blood Gas Inspired Oxygen 30%, Sodium Level 137, Pot assium Level 3.1L, Chloride Level 111H, Carbon Dioxide Level 16L, Anion Gap 10, Blood Urea Nitrogen 18, Creatinine 0.55L, Estimat Glomerular Filtration Rate > 60, BUN/Creatinine Ratio 33, Glucose Level 154H, Calcium Level 7.5L, Phosphorus Level 3.6, Magnesium Level 1.7, Triglycerides Level 75 06/25/19 08:59: Blood Gas Puncture Site ART LINE, Blood Gas Patient Temperature 96.8, Arterial Blood pH 7.39, Arterial Blood Partial Pressure CO2 33L, Arterial Blood Partial Pressure O2 78L, Arterial Blood HCO3 20L, Arterial Blood Total CO2 20.5L, Arteri al Blood Oxygen Saturation 97, Arterial Blood Base Excess -4.9L, Ambrosio Test ART LINE, Blood Gas Ventilator Setting YES, Blood Gas Inspired Oxygen 30% Patient resulted labs reviewed. Pending Labs Laboratory Tests 06/25/19 03:00: White Blood Count 16.9, Red Blood Count 3.07, Hemoglobin 7.5, Hematocrit 24, Mean Corpuscular Volume 78, Mean Corpuscular Hemoglobin 24, Mean Corpuscular Hemoglobin Concent 31, Red Cell Distribution Width 14.4, Platelet Count 705, Mean Platelet Volume 10.1, Neutrophils (%) (Auto) 97, Lymphocytes (%) (Auto) 2, Monocytes (%) (Auto) 2, Eosinophils (%) (Auto) 0, Basophils (%) (Auto) 0, Neutrophils # (Auto) 16.3, Lymphocytes # (Auto) 0.3, Monocytes # (Auto) 0.3, Eos inophils # (Auto) 0.0, Basophils # (Auto) 0.0, Blood Gas Puncture Site RIGHT RADIAL, Blood Gas Patient Temperature 97.2, Arterial Blood pH 7.39, Arterial Blood Partial Pressure CO2 29, Arterial Blood Partial Pressure O2 113, Arterial Blood HCO3 18, Arterial Blood Total CO2 18.4, Arterial Blood Oxygen Saturation 99, Arterial Blood Base Excess -6.7, Ambrosio Test ART LINE, Blood Gas Ventilator Setting YES, Blood Gas Inspired Oxygen 30%, Sodium Level 137, Potassium Level 3.1, Chloride Level 111, Carbon Dioxide Level 16, Anion Gap 10, Blood Urea Nitrogen 18, Creatinine 0.55, Estimat Glomerular Filtration Rate > 60, BUN/Creatinine Ratio 33, Glucose Level 154, Calcium Level 7.5, Phosphorus Level 3.6, Magnesium Level 1.7, Triglycerides Level 75 06/25/19 08:59: Blood Gas Puncture Site ART LINE, Blood Gas Patient Temperature 96.8, Arterial Blood pH 7.39, Arterial Blood Partial Pressure CO2 33, Arterial Blood Partial Pressure O2 78, Arterial Blood HCO3 20, Arterial Blood Total CO2 20.5, Arterial Blood Oxygen Saturation 97, Arterial Blood Base Excess -4.9, Ambrosio Test ART LINE, Blood Gas Ventilator Setting YES, Blood Gas Inspired Oxygen 30% Imaging: Reviewed Imaging Films, Reviewed Imaging Report Discussion & Recommendations Discharge Planning: >30 minutes discharge planning Discharge Home Medications: Active Scripts Active Reported Fluticasone Propionate 16 Gm [place].susp 2 Sprays NS DAILY Lisinopril 20 Mg Tablet 20 Mg PO DAILY Protonix (Pantoprazole Sodium) 40 Mg Tablet.dr 40 Mg PO DAILY Reglan (Metoclopramide HCl) 10 Mg Tablet 10 Mg PO ACHS PRN Ondansetron Odt (Ondansetron) 4 Mg Tab.rapdis 4 Mg PO TID PRN Instructions to patient/family Please see electronic discharge instructions given to patient. Clinical Quality Measures DVT/VTE Risk/Contraindication: Risk Factor Score Per Nursin RFS Level Per Nursing on Admit: 3=High Problem Qualifiers (1) Protein-energy malnutrition: Protein-calorie malnutrition severity: moderate Qualified Codes: E44.0 - Moderate protein-calorie malnutrition KAVITA STEVENS MD Jun 25, 2019 9:56 am
--- NOTE | 2019-06-25 10:17 | NUR ---
PT TRANSFERRED TO [facility]IA [facility]. DAUGHTER NOTIFIED OF TRANSFER TIME, AND REPORT GIVEN TO CALLY RECIO AT 09:45
[2019-06-25] MEDS ORDERED: LIDOCAINE PF 1% 2 ML VIAL IJ ONE (10:18)
== END 2019-06-25 10:19 | disposition short-term general hospital (02) | DRG 208 ==
LOC: 4TH 14:40 → ICU 17:44
PROVIDERS: ADMIT Family Medicine; ATTEND Family Medicine
PROC: 5A1935Z Respiratory Ventilation, Less than 24 Consecutive Hours (ICD-10-PCS; principal; 2019-06-24)
PROC: 0W9B3ZZ Drainage of Left Pleural Cavity, Percutaneous Approach (ICD-10-PCS; 2019-06-24)
PROC: 0BH17EZ Insertion of Endotracheal Airway into Trachea, Via Natural or Artificial Opening (ICD-10-PCS; 2019-06-24)
PROC: 5A2204Z Restoration of Cardiac Rhythm, Single (ICD-10-PCS; 2019-06-24)
DX: J90 Pleural effusion, not elsewhere classified (principal); J98.09 Other diseases of bronchus, not elsewhere classified; R91.8 Other nonspecific abnormal finding of lung field; I48.91 Unspecified atrial fibrillation; I48.92 Unspecified atrial flutter; R57.0 Cardiogenic shock; R00.0 Tachycardia, unspecified; J96.00 Acute respiratory failure, unspecified whether with hypoxia or hypercapnia; A41.9 Sepsis, unspecified organism; J18.9 Pneumonia, unspecified organism; E44.0 Moderate protein-calorie malnutrition; D47.3 Essential (hemorrhagic) thrombocythemia; E87.6 Hypokalemia; K63.5 Polyp of colon; F17.210 Nicotine dependence, cigarettes, uncomplicated; I10 Essential (primary) hypertension; K21.9 Gastro-esophageal reflux disease without esophagitis; K59.09 Other constipation; M19.90 Unspecified osteoarthritis, unspecified site
CPT/HCPCS: 36415; 71045; 80048; 80053; 82150; 82805; 82945; 82962; 83605; 83615; 83690; 83735; 83986; 84100; 84157; 84439; 84443; 84478; 84484; 85007; 85025; 85027; 85610; 85730; 86301; 87015; 87040; 87070; 87081; 87101; 87116; 87205; 87206; 89051; 93005; 93306; 94002; 94003; 94640; 94799